=== PATIENT | female | born 1970 | race Caucasian/White ===

== ENCOUNTER 2018-01-14 17:56 | Inpatient (IN) ==
[2018-01-14] MEDS ORDERED: Sod Chloride 0.9% Inj 1,000 ML IV.SIG ONE (18:01)
--- NOTE | 2018-01-14 18:34 | ED ---
HPI General Chief Complaint: Overdose Stated Complaint: BA Time Seen by Provider: 01/14/18 18:01 Source: patient Mode of arrival: ambulatory Limitations: no limitations History of Present Illness HPI Narrative: 47-year-old female who presents to the ED for evaluation of overdose. Patient came here by EVAC. Per report from the ambulance and patient herself as well as from the ED nurse patient apparently allegedly made a note stating that she was going in her life and takes her pills. Patient herself did not confess to it but does state that she did drink a lot of vodka today. Apparently she might have taken some opiates as patient was given Narcan Did came back to it. Apparently EVAC was called by family member from out of town as they were concerned as patient had made some suicidal statements. Patient denies any symptoms at this time other than feeling tired. She is arousable but answer some questions. No abdominal pain. Nausea vomiting. Patient herself states that she wants to go home. She denies any homicidal ideation. No other medical problems. Related Data Allergies Allergy/AdvReac Type Severity Reaction Status Date / Time No Known Allergies Allergy Unknown Uncoded 03/11/12 20:23 Review of Systems ROS: all other systems reviewed are negative FOR[facility]LY [facility] Medical History Medical History EtOH dependence (Acute) HTN (hypertension) (Acute) Social History Social History Smoking Status: Current every day smoker Tobacco Type: Cigarettes How Often Do You Have a Drink Containing Alcohol: 4 or more times a week Recent Travel in [facility] within the Last 8 Weeks: No Recent Out of Country Travel within the Last 8 Weeks: No Immunization History Tetanus Immunization: Unable to Assess Hx Influenza Vaccine This Season: Unable to Assess Exam Narrative Exam Narrative: GENERAL: Well appearing. SKIN: Focused skin assessment warm/dry. HEAD: Atraumatic. Normocephalic. EYES: Pupils equal and round. No scleral icterus. No injection or drainage. ENT: No nasal bleeding or discharge. Mucous membranes pink and moist. Tongue is midline. No uvula deviation. NECK: Trachea midline. No JVD. CARDIOVASCULAR: Regular rate and rhythm. No murmur appreciated. RESPIRATORY: No accessory muscle use. Clear to auscultation. Breath sounds equal bilaterally. GASTROINTESTINAL: Abdomen soft, non-tender, nondistended. Hepatic and splenic margins not palpable. MUSCULOSKELETAL: No obvious deformities. No clubbing. No cyanosis. No edema. Full range of motion of the upper and lower extremities bilaterally. 2+ pulses bilaterally. NEUROLOGICAL: Awake and alert. No obvious cranial nerve deficits. Motor grossly within normal limits. Normal speech. PSYCHIATRIC: Intoxicated mood and affect; insight and judgment normal. Course Initial Documented Vital Signs Temperature 98.4 F 01/14/18 18:07 Pulse Rate 124 H 01/14/18 18:07 Respiratory Rate 19 01/14/18 18:07 Blood Pressure 140/79 01/14/18 18:07 Pulse Oximetry 99 01/14/18 18:07 Last Documented Vital Signs Temperature 98.3 F 01/14/18 20:09 Pulse Rate 116 H 01/14/18 20:09 Respiratory Rate 15 01/14/18 20:09 Blood Pressure 142/84 H 01/14/18 20:09 Pulse Oximetry 100 01/14/18 20:09 Medical Decision Making VIVIANE Attestation Attestation: I, Dr. Bejarano, have reviewed the advance practice practitioner's documentation and am in agreement, met with the patient face to face, made the diagnosis, and the medical decision making was done by me. *My assessment and Findings: Patient seen and evaluated with PA, please see PA notes for further details. She is here after an intentional overdose of Seroquel and possibly other medications including Geodon. It does not know what she actually took but she also has been drinking alcohol. She has been Huynh acted by me in the ER. At this point, it appears to be intentional overdose. She is tachycardic and apparently had a episode of narrow complex tachycardia while on the ambulance at a rate of 140 bpm. It self resolved. EKG did not show any significant interval changes. Her QRSs are less than 100 ms. At this point, patient will need to be observed over night and plan would be to admit her for further evaluation and treatment. Evaluation of electrolyte abnormalities and coingestions will also need to be done as well. Poison control has been contacted and is following case. MDM Narrative Medical decision making narrative: 47-year-old female that presents to the ED for evaluation of possible overdose with attempt to hurt herself. Patient was properly examined and was found to have signs and symptoms consistent with overdose. Currently she is arousable and she answer some questions but is hard to get a history from her. She would not fess up to what she took. Allegedly she took remerol and possible Seroquel. IV fluids were started. Labs and imaging order. Poison control was contacted and recommend observation for now. Watch for QRS changes. Labs and imaging showed elevated lactic acid. Positive for benzos, cocaine and cannabinoids. Alcohol elevated as well. Case discussed with my attending who agrees with admission. Patient was admitted to Dr. Jesus who agrees to admission to her service. Medical Screen Exam Complete: Yes Emergency Medical Condition: Yes Differential Diagnosis Differential Diagnosis: Overdose versus Huynh act versus psychiatric evaluation versus depression versus suicidal attempt versus polysubstance abuse Medical Records Medical records reviewed: Yes I reviewed the patient's medical records. Lab Data Result diagrams: 01/14/18 18:20 01/14/18 18:20 Lab Results 01/14/18 01/14/18 01/14/18 Range/Units 18:20 18:20 18:20 WBC 4.6 (4.0-11.0) th/mm3 RBC 3.51 L (4.00-5.30) mil/mm3 Hgb 13.1 (11.6-15.3) gm/dL Hct 37.7 (35.0-46.0) % MCV 107.3 H (80.0-100.0) fL MCH 37.2 H (27.0-34.0) pg MCHC 34.7 (32.0-36.0) % RDW 13.8 (11.6-17.2) % Plt Count 108 L (150-450) th/mm3 MPV 9.7 (7.0-11.0) fL Neut % (Auto) 57.7 (16.0-70.0) % Lymph % (Auto) 33.9 (9.0-44.0) % Marion % (Auto) 5.1 (0.0-8.0) % Eos % (Auto) 2.3 (0.0-4.0) % Baso % (Auto) 1.0 (0.0-2.0) % Neut # (Auto) 2.6 (1.8-7.7) th/mm3 Lymph # (Auto) 1.6 (1.0-4.8) th/mm3 Marion # (Auto) 0.2 (0.0-0.9) th/mm3 Eos # (Auto) 0.1 (0.0-0.4) th/mm3 Baso # (Auto) 0.0 (0.0-0.2) th/mm3 WBC Differential . Differential Comment Auto diff final PT 9.8 (9.8-11.6) sec INR 1.0 Ratio Sodium 140 (136-145) meq/L Potassium 3.2 L (3.5-5.1) meq/L Chloride 101 (98-107) meq/L Carbon Dioxide 25.6 (21.0-32.0) meq/L Anion Gap 13 (5-15) meq/L BUN 4 L (7-18) mg/dL Creatinine 0.51 (0.50-1.00) mg/dL Estimated GFR Greater than 89 (>89) mL/min Random Glucose 95 (74-106) mg/dL Lactic Acid (0.4-2.0) mmol/L Calcium 8.6 (8.5-10.1) mg/dL Total Bilirubin 0.3 (0.2-1.0) mg/dL AST 289 H (15-37) U/L ALT 197 H (10-53) U/L Alkaline Phosphatase 73 (45-117) U/L Troponin I Less than 0.02 L (0.02-0.05) ng/mL Total Protein 7.3 (6.4-8.2) g/dL Albumin 3.6 (3.4-5.0) g/dL Lipase 228 (73-393) U/L Urine Color (Yellw/Straw) Urine Clarity (Clear) Urine pH (5.0-8.5) Ur Specific [place] (1.002-1.035) Urine Protein (Neg-Trace) mg/dL Urine Glucose (UA) (Negative) mg/dL Urine Ketones (Negative) mg/dL Urine Occult Blood (Negative) Urine Nitrate (Negative) Urine Bilirubin (Negative) Urine Urobilinogen (Less than 2) mg/dL Ur Leukocyte Esterase (Negative) Urine RBC (0-3) /hpf Urine WBC (0-5) /hpf Ur Squamous Epith Cells (0-5) /hpf Urine Bacteria (None) /hpf Urine Mucus (Occasional) /lpf Micro UA Comment Ur Microscopic Review Urine Culture Comments Salicylates (2.8-20.0) mg/dL Urine Opiates Screen (Neg) Acetaminophen Less than 2.0 L (10.0-30.0) mcg/mL Ur Barbiturates Screen (Neg) Ur Amphetamines Screen (Neg) U Benzodiazepines Scrn (Neg) Urine Cocaine Screen (Neg) U Cannabinoids Screen (Neg) Serum Alcohol 249 H (0-5) mg/dL 01/14/18 01/14/18 01/14/18 Range/Units 18:20 18:40 18:40 WBC (4.0-11.0) th/mm3 RBC (4.00-5.30) mil/mm3 Hgb (11.6-15.3) gm/dL Hct (35.0-46.0) % MCV (80.0-100.0) fL MCH (27.0-34.0) pg MCHC (32.0-36.0) % RDW (11.6-17.2) % Plt Count (150-450) th/mm3 MPV (7.0-11.0) fL Neut % (Auto) (16.0-70.0) % Lymph % (Auto) (9.0-44.0) % Marion % (Auto) (0.0-8.0) % Eos % (Auto) (0.0-4.0) % Baso % (Auto) (0.0-2.0) % Neut # (Auto) (1.8-7.7) th/mm3 Lymph # (Auto) (1.0-4.8) th/mm3 Marion # (Auto) (0.0-0.9) th/mm3 Eos # (Auto) (0.0-0.4) th/mm3 Baso # (Auto) (0.0-0.2) th/mm3 WBC Differential Differential Comment PT (9.8-11.6) sec INR Ratio Sodium (136-145) meq/L Potassium (3.5-5.1) meq/L Chloride (98-107) meq/L Carbon Dioxide (21.0-32.0) meq/L Anion Gap (5-15) meq/L BUN (7-18) mg/dL Creatinine (0.50-1.00) mg/dL Estimated GFR (>89) mL/min Random Glucose (74-106) mg/dL Lactic Acid 4.4 H* (0.4-2.0) mmol/L Calcium (8.5-10.1) mg/dL Total Bilirubin (0.2-1.0) mg/dL AST (15-37) U/L ALT (10-53) U/L Alkaline Phosphatase (45-117) U/L Troponin I (0.02-0.05) ng/mL Total Protein (6.4-8.2) g/dL Albumin (3.4-5.0) g/dL Lipase (73-393) U/L Urine Color (Yellw/Straw) Urine Clarity (Clear) Urine pH (5.0-8.5) Ur Specific [place] (1.002-1.035) Urine Protein (Neg-Trace) mg/dL Urine Glucose (UA) (Negative) mg/dL Urine Ketones (Negative) mg/dL Urine Occult Blood (Negative) Urine Nitrate (Negative) Urine Bilirubin (Negative) Urine Urobilinogen (Less than 2) mg/dL Ur Leukocyte Esterase (Negative) Urine RBC (0-3) /hpf Urine WBC (0-5) /hpf Ur Squamous Epith Cells (0-5) /hpf Urine Bacteria (None) /hpf Urine Mucus (Occasional) /lpf Micro UA Comment Ur Microscopic Review Urine Culture Comments Salicylates 3.0 (2.8-20.0) mg/dL Urine Opiates Screen Neg (Neg) Acetaminophen (10.0-30.0) mcg/mL Ur Barbiturates Screen Neg (Neg) Ur Amphetamines Screen Neg (Neg) U Benzodiazepines Scrn Pos H (Neg) Urine Cocaine Screen Pos H (Neg) U Cannabinoids Screen Pos H (Neg) Serum Alcohol (0-5) mg/dL 01/14/18 Range/Units 18:40 WBC (4.0-11.0) th/mm3 RBC (4.00-5.30) mil/mm3 Hgb (11.6-15.3) gm/dL Hct (35.0-46.0) % MCV (80.0-100.0) fL MCH (27.0-34.0) pg MCHC (32.0-36.0) % RDW (11.6-17.2) % Plt Count (150-450) th/mm3 MPV (7.0-11.0) fL Neut % (Auto) (16.0-70.0) % Lymph % (Auto) (9.0-44.0) % Marion % (Auto) (0.0-8.0) % Eos % (Auto) (0.0-4.0) % Baso % (Auto) (0.0-2.0) % Neut # (Auto) (1.8-7.7) th/mm3 Lymph # (Auto) (1.0-4.8) th/mm3 Marion # (Auto) (0.0-0.9) th/mm3 Eos # (Auto) (0.0-0.4) th/mm3 Baso # (Auto) (0.0-0.2) th/mm3 WBC Differential Differential Comment PT (9.8-11.6) sec INR Ratio Sodium (136-145) meq/L Potassium (3.5-5.1) meq/L Chloride (98-107) meq/L Carbon Dioxide (21.0-32.0) meq/L Anion Gap (5-15) meq/L BUN (7-18) mg/dL Creatinine (0.50-1.00) mg/dL Estimated GFR (>89) mL/min Random Glucose (74-106) mg/dL Lactic Acid (0.4-2.0) mmol/L Calcium (8.5-10.1) mg/dL Total Bilirubin (0.2-1.0) mg/dL AST (15-37) U/L ALT (10-53) U/L Alkaline Phosphatase (45-117) U/L Troponin I (0.02-0.05) ng/mL Total Protein (6.4-8.2) g/dL Albumin (3.4-5.0) g/dL Lipase (73-393) U/L Urine Color Yellow (Yellw/Straw) Urine Clarity Clear (Clear) Urine pH 6.0 (5.0-8.5) Ur Specific [place] 1.011 (1.002-1.035) Urine Protein Negative (Neg-Trace) mg/dL Urine Glucose (UA) Negative (Negative) mg/dL Urine Ketones Trace H (Negative) mg/dL Urine Occult Blood Small H (Negative) Urine Nitrate Negative (Negative) Urine Bilirubin Negative (Negative) Urine Urobilinogen Less than 2 (Less than 2) mg/dL Ur Leukocyte Esterase Negative (Negative) Urine RBC 1 (0-3) /hpf Urine WBC Less than 1 (0-5) /hpf Ur Squamous Epith Cells <1 (0-5) /hpf Urine Bacteria Occasional H (None) /hpf Urine Mucus Few H (Occasional) /lpf Micro UA Comment Cath-culture ind Ur Microscopic Review Not Reportable Urine Culture Comments Cath-cult indicated Salicylates (2.8-20.0) mg/dL Urine Opiates Screen (Neg) Acetaminophen (10.0-30.0) mcg/mL Ur Barbiturates Screen (Neg) Ur Amphetamines Screen (Neg) U Benzodiazepines Scrn (Neg) Urine Cocaine Screen (Neg) U Cannabinoids Screen (Neg) Serum Alcohol (0-5) mg/dL Discharge Plan Discharge Disposition Patient Disposition: 30 Still Patient Discharge Details Diagnosis: Drug overdose, Suicide attempt by multiple drug overdose Physicians Team ED Provider: Bree Bejarano ED Midlevel Provider: Tano Barnard Primary Care Provider: UNKNOWN, Attending Provider: Delia Jesus Discharge Interventions Interventions: Vital Signs Last Done: 01/14/18 20:09 Status ED Status: Admitted Patient
[2018-01-14 18:58] LABS: Eos # (Auto) 0.1 th/mm3 (0.0-0.4); Eos % (Auto) 2.3 % (0.0-4.0); Hematocrit 37.7 % (35.0-46.0); Hemoglobin 13.1 gm/dL (11.6-15.3); Lymph # (Auto) 1.6 th/mm3 (1.0-4.8); Lymph % (Auto) 33.9 % (9.0-44.0); Mean Corpuscular HGB Conc 34.7 % (32.0-36.0); Mean Corpuscular Hemoglobin 37.2 pg (27.0-34.0); Mean Corpuscular Volume 107.3 fL (80.0-100.0); Mean Platelet Volume 9.7 fL (7.0-11.0); Mono # (Auto) 0.2 th/mm3 (0.0-0.9); Mono % (Auto) 5.1 % (0.0-8.0); Neut # (Auto) 2.6 th/mm3 (1.8-7.7); Neut % (Auto) 57.7 % (16.0-70.0); Platelet Count 108 th/mm3 (150-450); Red Blood Count 3.51 mil/mm3 (4.00-5.30); Red Cell Distribution Width 13.8 % (11.6-17.2); White Blood Count 4.6 th/mm3 (4.0-11.0)
[2018-01-14 19:10] LABS: Prothrombin Time 9.8 sec (9.8-11.6)
[2018-01-14 19:29] LABS: Albumin 3.6 g/dL (3.4-5.0); Anion Gap 13 meq/L (5-15); Blood Urea Nitrogen 4 mg/dL (7-18); Calcium 8.6 mg/dL (8.5-10.1); Carbon Dioxide 25.6 meq/L (21.0-32.0); Chloride 101 meq/L (98-107); Glomerular Filtration Rate Greater Than 89 mL/min (>89); Glucose,Random 95 mg/dL (74-106); Lipase 228 U/L (73-393); Potassium 3.2 meq/L (3.5-5.1); Sodium 140 meq/L (136-145)
[2018-01-14] MEDS ORDERED: Sod Chloride 0.9% Inj 1,000 ML IV.SIG SCH (19:30)
[2018-01-14 19:36] LABS: Alanine Aminotransferase 197 U/L (10-53); Alkaline Phosphatase 73 U/L (45-117); Aspartate Aminotransferase 289 U/L (15-37); Total Protein 7.3 g/dL (6.4-8.2)
[2018-01-14 19:48] LABS: Alcohol 249 mg/dL (0-5)
[2018-01-14] MEDS ORDERED: Mag Sulf 1 gm/100 ml Premix 100 ML IV.SIG ONE (20:33)
[2018-01-14] MEDS ORDERED: LORazepam 1 MG Tablet PO PRN (20:52)
[2018-01-14] MEDS ORDERED: Haloperidol Inj 5 MG/ML Ampul IV.PUSH PRN (20:52)
[2018-01-14 21:03] LABS: Bacteria,Urine Occasional /hpf; Bilirubin,Urine Negative (Negative); Clarity,Urine Clear (Clear); Color,Urine Yellow (Yellw/Straw); Glucose,Urine (UA) Negative (Negative); Leukocyte Esterase,Urine Negative (Negative); Mucus,Urine Few /lpf (Occasional); Nitrite,Urine Negative (Negative); Specific Gravity,Urine 1.011 (1.002-1.035); Squamous Epithelial Cell,Urine <1 /hpf (0-5)
[2018-01-14 21:04] LABS: Amphetamine Screen,Urine Neg (Neg); Barbiturate Screen,Urine Neg (Neg); Cannabinoid Screen,Urine Pos (Neg); Cocaine Screen,Urine Pos (Neg)
[2018-01-14 21:29] LABS: Opiate Screen,Urine Neg (Neg)
--- NOTE | 2018-01-14 22:36 | P.HPIM ---
History of Present Illness Primary Care Physician: UNKNOWN History of Present Illness: 47 y/o female with a history of polysubstance abuse was brought in by EVAC after an intentional overdose. Per report from the ER physician said she apparently made a note stating that she was going in her life and takes her pills. It is unknown what medications she took. Upon examination patient is lethargic and not answering any questions. She does arouse to voice but just mumbles sounds. ROS is limited due to mental status. Inpatient Certification: I certify that the inpatient services were ordered in accordance with Medicare regulations governing the order. This includes certification that hospital inpatient services are reasonable and necessary and in the case of services not specified as inpatient-only under 42 CFR 419.22(n), that they are appropriately provided as inpatient services in accordance to with the 2-midnight benchmark under 43 CFR 412.3(e) Estimated Total Length of Stay (Days): 2 Plans for Post Hospital Care: Not yet determined Review of Systems All other systems reviewed negative except as stated in HPI [facility] - History History Provided By: Patient, Building Services Engineer / EMT - Medical / Surgical Hx Neg / Unobtainable Surgical History: Unable to Obtain - Medical History Medical History: Medical History (Last Reviewed 01/14/18 @ 23:19 by ROMULO Barnes) EtOH dependence HTN (hypertension) - Surgical History Surgical History: Surgical History (Last Updated 01/14/18 @ 23:19 by ROMULO Barnes) Surgical history unknown - Family History Family History: Family History (Last Reviewed 01/14/18 @ 23:18 by ROMULO Barnes) Other Family history unknown - Tobacco History Tobacco Use In Past 30 Days: No Smoking Status: Current every day smoker Tobacco Type: Cigarettes - Alcohol History How Often Do You Have a Drink Containing Alcohol: 4 or more times a week - Travel History Recent Travel in the [place] Within the Last 8 Weeks: No Recent Travel Out of the Country Within the Last 8 Weeks: No - Immunization History Tetanus Immunization: Unable to Assess Hx Influenza Vaccine This Season: Unable to Assess Medications and Allergies Active Medications: Active Medications Flumazenil (Romazecon Inj) 0.2 mg IV.PUSH Q1M PRN PRN Reason: OVERSEDATION Haloperidol Lactate (Haldol Inj) 1 mg IV.PUSH Q15M PRN PRN Reason: for severe agitation Sodium Chloride (Ns Inj) 1,000 mls @ 0 mls/hr IV.SIG BOLUS IZABEL Sodium Chloride (Ns Inj) 1,000 mls @ 100 mls/hr IV.CONT .Q10H IZABEL Lorazepam (Ativan Inj) 1 mg IV.PUSH Q4H PRN PRN Reason: for CIWA 8-10 Lorazepam (Ativan Inj) 2 mg IV.PUSH Q15M PRN PRN Reason: for CIWA > 20 Lorazepam (Ativan Inj) 2 mg IV.PUSH Q1H PRN PRN Reason: for CIWA 15-20 Lorazepam (Ativan Inj) 2 mg IV.PUSH Q2H PRN PRN Reason: for CIWA 11-14 Lorazepam (Ativan) 1 mg PO Q4H PRN PRN Reason: for CIWA 8-10 Lorazepam (Ativan) 2 mg PO Q2H PRN PRN Reason: for CIWA 11-14 Ondansetron HCl (Zofran Inj) 4 mg IV.PUSH Q6H PRN PRN Reason: NAUSEA OR VOMITING Allergies Allergy/AdvReac Type Severity Reaction Status Date / Time No Known Allergies Allergy Unknown Uncoded 03/11/12 20:23 Exam Vital signs: Vital Signs 01/14/18 18:07 01/14/18 18:15 01/14/18 20:09 Temperature 98.4 F 98.3 F Pulse Rate 124 H 119 H 116 H Respiratory Rate 19 15 Blood Pressure 140/79 142/84 H Pulse Oximetry 99 96 100 Intake & Output 01/14/18 01/14/18 01/15/18 06:59 18:59 06:59 Intake Total 1100 / 1100 Balance 1100 / 1100 Weight 74.843 kg Intake: IV 1100 / 1100 Magnesium Sulfate 1 gm/D5W 100 100 / 100 ml Premix 100 ML @ 100 mls/hr IV.SIG ONCE ONE Rx#:[id number] NS Inj 1,000 ML @ Wide Open IV. 1000 / 1000 SIG BOLUS ONE Rx#:[id number] Narrative: GENERAL: This is a well-nourished, well-developed patient, in no apparent distress. CARDIOVASCULAR: Regular rate and rhythm without murmurs, gallops, or rubs. RESPIRATORY: Clear to auscultation. Breath sounds equal bilaterally. No wheezes , rales, or rhonchi. GASTROINTESTINAL: Abdomen soft, non-tender, nondistended. Normal active bowel sounds MUSCULOSKELETAL: Extremities without clubbing, cyanosis, or edema. NEURO: Lethargic, drunk and not oriented to person, place, time, or situation. Does not follow commands Results - Labs CBC & Chem 7: 01/14/18 18:20 01/14/18 18:20 Labs: Short CBC 01/14/18 Range/Units 18:20 WBC 4.6 (4.0-11.0) th/mm3 Hgb 13.1 (11.6-15.3) gm/dL Hct 37.7 (35.0-46.0) % Plt Count 108 L (150-450) th/mm3 BMP 01/14/18 18:20 Sodium 140 Potassium 3.2 L Chloride 101 Carbon Dioxide 25.6 BUN 4 L Creatinine 0.51 Calcium 8.6 Cardiac Enzymes 01/14/18 Range/Units 18:20 Troponin I Less than 0.02 L (0.02-0.05) ng/mL Liver Function 01/14/18 Range/Units 18:20 Total Bilirubin 0.3 (0.2-1.0) mg/dL AST 289 H (15-37) U/L ALT 197 H (10-53) U/L Alkaline Phosphatase 73 (45-117) U/L Albumin 3.6 (3.4-5.0) g/dL Urine 01/14/18 Range/Units 18:40 Urine Color Yellow (Yellw/Straw) Urine Clarity Clear (Clear) Urine pH 6.0 (5.0-8.5) Ur Specific [place] 1.011 (1.002-1.035) Urine Protein Negative (Neg-Trace) mg/dL Urine Glucose (UA) Negative (Negative) mg/dL Caprini VTE Risk Assessment Caprini VTE Risk Assessment: No/Low Risk (score <= 1) Caprini Risk Assessment Model: Point Value = 1 Point Value = 2 Point Value = 3 Point Value = 5 Age 41-60 Minor surgery BMI > 25 kg/m2 Swollen legs Varicose veins or History of unexplained or recurrent spontaneous Oral contraceptives or hormone replacement Sepsis (< 1 month) Serious lung disease, including pneumonia (< 1 month) Abnormal pulmonary function Acute myocardial infarction Congestive heart failure (< 1 month) History of inflammatory bowel disease Medical patient at bed rest Age 61-74 Arthroscopic surgery Major open surgery (> 45 min) Laparoscopic surgery (> 45 min) Malignancy Confined to bed (> 72 hours) Immobilizing plaster cast Central venous access Age >= 75 History of VTE Family history of VTE Factor V Leiden Prothrombin [id number] Lupus anticoagulant Anticardiolipin antibodies Elevated serum homocysteine Heparin-induced thrombocytopenia Other congenital or acquired thrombophilia Stroke (< 1 month) Elective arthroplasty Hip, pelvis, or leg fracture Acute spinal cord injury (< 1 month) Prophylaxis Regimen: Total Risk Factor Score Risk Level Prophylaxis Regimen 0-1 Low Early ambulation 2 Moderate Order ONE of the following: *Sequential Compression Device (SCD) *Heparin 5000 units SQ BID 3-4 Higher Order ONE of the following medications: *Heparin 5000 units SQ TID *Enoxaparin/Lovenox 40 mg SQ daily (WT < 150 kg, CrCl > 30 mL/min) *Enoxaparin/Lovenox 30 mg SQ daily (WT < 150 kg, CrCl > 10-29 mL/min) *Enoxaparin/Lovenox 30 mg SQ BID (WT < 150 kg, CrCl > 30 mL/min) AND/OR *Sequential Compression Device (SCD) 5 or more Highest Order ONE of the following medications: *Heparin 5000 units SQ TID (Preferred with Epidurals) *Enoxaparin/Lovenox 40 mg SQ daily (WT < 150 kg, CrCl > 30 mL/min) *Enoxaparin/Lovenox 30 mg SQ daily (WT < 150 kg, CrCl > 10-29 mL/min) *Enoxaparin/Lovenox 30 mg SQ BID (WT < 150 kg, CrCl > 30 mL/min) AND *Sequential Compression Device (SCD) Assessment and Plan - Plan Intentional overdose, unknown medications -Poison control notified and following -Patient is ayanna vickers sitter ordered -Restraints -Serial troponin and EKGs ordered -Monitor telemetry -Consult psychiatry Etoh abuse, alcohol level on admission 249 -Due to mental status unable to summer counselor -[facility] protocol DVT prophylaxis: SCDs Discussed Condition With: Patient and RN
[2018-01-14] MEDS: Sod Chloride 0.9% Inj 1,000 ML IV.CONT SCH (23:23)
[2018-01-15] MEDS: Potassium Chlor 10 mEq Premix 10 MEQ/100 ML PIGGYBACK IV.SIG SCH ×3 (00:49→03:11)
[2018-01-15 06:02] LABS: Baso % (Auto) 0.4 % (0.0-2.0); Eos # (Auto) 0.2 th/mm3 (0.0-0.4); Eos % (Auto) 2.9 % (0.0-4.0); Hematocrit 35.4 % (35.0-46.0); Hemoglobin 12.3 gm/dL (11.6-15.3); Lymph # (Auto) 1.6 th/mm3 (1.0-4.8); Lymph % (Auto) 31.3 % (9.0-44.0); Mean Corpuscular HGB Conc 34.9 % (32.0-36.0); Mean Corpuscular Hemoglobin 37.5 pg (27.0-34.0); Mean Corpuscular Volume 107.6 fL (80.0-100.0); Mean Platelet Volume 9.2 fL (7.0-11.0); Mono # (Auto) 0.3 th/mm3 (0.0-0.9); Mono % (Auto) 5.1 % (0.0-8.0); Neut # (Auto) 3.1 th/mm3 (1.8-7.7); Neut % (Auto) 60.3 % (16.0-70.0); Platelet Count 109 th/mm3 (150-450); Red Blood Count 3.29 mil/mm3 (4.00-5.30); Red Cell Distribution Width 13.6 % (11.6-17.2); White Blood Count 5.2 th/mm3 (4.0-11.0)
[2018-01-15 06:17] LABS: Anion Gap 9 meq/L (5-15); Blood Urea Nitrogen 2 mg/dL (7-18); Calcium 8.4 mg/dL (8.5-10.1); Carbon Dioxide 27.2 meq/L (21.0-32.0); Chloride 107 meq/L (98-107); Glomerular Filtration Rate Greater Than 89 mL/min (>89); Glucose,Random 73 mg/dL (74-106); Magnesium 2.2 mg/dL (1.5-2.5); Potassium 3.7 meq/L (3.5-5.1); Sodium 143 meq/L (136-145)
[2018-01-15 06:21] LABS: Creatine Kinase 71 U/L (26-192)
[2018-01-15] MEDS: Sod Chloride 0.9% Inj 1,000 ML IV.CONT SCH (09:30)
--- NOTE | 2018-01-15 11:55 | P.PN ---
Subjective Interval history: hungry telemetry in sinus rhythm seen with sitter at bedside expressed frustration thought of not "wanting to live" took extra Klonopin pills no pain, no nausea or vomiting per patient on diuretics for HTN- does not know the name Physical Exam Vital signs: Vital Signs 01/14/18 18:07 01/14/18 18:15 01/14/18 20:09 Temperature 98.4 F 98.3 F Pulse Rate 124 H 119 H 116 H Respiratory Rate 19 15 Blood Pressure 140/79 142/84 H Pulse Oximetry 99 96 100 01/15/18 00:15 01/15/18 01:00 01/15/18 02:00 Temperature 97.4 F L Pulse Rate 88 89 90 Respiratory Rate 16 Blood Pressure 145/95 H Pulse Oximetry 98 01/15/18 03:00 01/15/18 04:00 01/15/18 05:00 Temperature 97.7 F Pulse Rate 86 96 H 90 Respiratory Rate 16 Blood Pressure 143/90 H Pulse Oximetry 97 01/15/18 06:00 01/15/18 07:00 01/15/18 08:00 Temperature 98.3 F Pulse Rate 104 H 100 H 94 H Respiratory Rate 20 Blood Pressure 152/98 H Pulse Oximetry 94 L Intake & Output 01/14/18 01/15/18 01/15/18 18:59 06:59 18:59 Intake Total 1400 / 1400 1000 / 1000 Output Total 2600 / 2600 Balance -1200 / -1200 1000 / 1000 Weight 74.843 kg 57.7 kg Intake: IV 1400 / 1400 1000 / 1000 NS Inj 1,000 ML @ 100 mls/hr IV 1000 / 1000 .CONT .Q10H IZABEL Rx#:[id number] Magnesium Sulfate 1 gm/D5W 100 100 / 100 ml Premix 100 ML @ 100 mls/hr IV.SIG ONCE ONE Rx#:[id number] KCl 10 mEq Premix Inj 10 meq In 300 / 300 100 ml @ 100 mls/hr IV.SIG Q1H IZABEL Rx#:[id number] NS Inj 1,000 ML @ Wide Open IV. 1000 / 1000 SIG BOLUS ONE Rx#:[id number] Output: Urine 2600 / 2600 Other: Date of Last Bowel Movement 01/13/18 # Bowel Movements 0 Narrative: affect blunt, frustrated awske and alert, no distess anciteric no nuchal rigidity'lungs- clear regularrhythm abdomen soft extrmeities no edema gait stedy Results - Labs CBC & Chem 7: 01/15/18 05:29 01/15/18 05:29 Laboratory Results - last 24 hr 01/14/18 01/14/18 01/14/18 18:20 18:20 18:20 WBC 4.6 RBC 3.51 L Hgb 13.1 Hct 37.7 MCV 107.3 H MCH 37.2 H MCHC 34.7 RDW 13.8 Plt Count 108 L MPV 9.7 Neut % (Auto) 57.7 Lymph % (Auto) 33.9 Moffat % (Auto) 5.1 Eos % (Auto) 2.3 Baso % (Auto) 1.0 Neut # (Auto) 2.6 Lymph # (Auto) 1.6 Moffat # (Auto) 0.2 Eos # (Auto) 0.1 Baso # (Auto) 0.0 WBC Differential . Differential Comment Auto diff final PT 9.8 INR 1.0 Sodium 140 Potassium 3.2 L Chloride 101 Carbon Dioxide 25.6 Anion Gap 13 BUN 4 L Creatinine 0.51 Estimated GFR Greater than 89 Random Glucose 95 Lactic Acid Calcium 8.6 Magnesium Total Bilirubin 0.3 AST 289 H ALT 197 H Alkaline Phosphatase 73 Total Creatine Kinase Troponin I Less than 0.02 L Total Protein 7.3 Albumin 3.6 Lipase 228 Urine Color Urine Clarity Urine pH Ur Specific [place] Urine Protein Urine Glucose (UA) Urine Ketones Urine Occult Blood Urine Nitrate Urine Bilirubin Urine Urobilinogen Ur Leukocyte Esterase Urine RBC Urine WBC Ur Squamous Epith Cells Urine Bacteria Urine Mucus Micro UA Comment Ur Microscopic Review Urine Culture Comments Salicylates Urine Opiates Screen Acetaminophen Less than 2.0 L Ur Barbiturates Screen Ur Amphetamines Screen U Benzodiazepines Scrn Urine Cocaine Screen U Cannabinoids Screen Serum Alcohol 249 H 01/14/18 01/14/18 01/14/18 18:20 18:40 18:40 WBC RBC Hgb Hct MCV MCH MCHC RDW Plt Count MPV Neut % (Auto) Lymph % (Auto) [place] % (Auto) Eos % (Auto) Baso % (Auto) Neut # (Auto) Lymph # (Auto) Moffat # (Auto) Eos # (Auto) Baso # (Auto) WBC Differential Differential Comment PT INR Sodium Potassium Chloride Carbon Dioxide Anion Gap BUN Creatinine Estimated GFR Random Glucose Lactic Acid 4.4 H* Calcium Magnesium Total Bilirubin AST ALT Alkaline Phosphatase Total Creatine Kinase Troponin I Total Protein Albumin Lipase Urine Color Urine Clarity Urine pH Ur Specific [place] Urine Protein Urine Glucose (UA) Urine Ketones Urine Occult Blood Urine Nitrate Urine Bilirubin Urine Urobilinogen Ur Leukocyte Esterase Urine RBC Urine WBC Ur Squamous Epith Cells Urine Bacteria Urine Mucus Micro UA Comment Ur Microscopic Review Urine Culture Comments Salicylates 3.0 Urine Opiates Screen Neg Acetaminophen Ur Barbiturates Screen Neg Ur Amphetamines Screen Neg U Benzodiazepines Scrn Pos H Urine Cocaine Screen Pos H U Cannabinoids Screen Pos H Serum Alcohol 01/14/18 01/15/18 01/15/18 18:40 05:29 05:29 WBC 5.2 RBC 3.29 L Hgb 12.3 Hct 35.4 MCV 107.6 H MCH 37.5 H MCHC 34.9 RDW 13.6 Plt Count 109 L MPV 9.2 Neut % (Auto) 60.3 Lymph % (Auto) 31.3 Moffat % (Auto) 5.1 Eos % (Auto) 2.9 Baso % (Auto) 0.4 Neut # (Auto) 3.1 Lymph # (Auto) 1.6 Moffat # (Auto) 0.3 Eos # (Auto) 0.2 Baso # (Auto) 0.0 WBC Differential . Differential Comment Auto diff final PT INR Sodium 143 Potassium 3.7 Chloride 107 Carbon Dioxide 27.2 Anion Gap 9 BUN 2 L Creatinine 0.37 L Estimated GFR Greater than 89 Random Glucose 73 L Lactic Acid Calcium 8.4 L Magnesium 2.2 Total Bilirubin AST ALT Alkaline Phosphatase Total Creatine Kinase 71 Troponin I Less than 0.02 L Total Protein Albumin Lipase Urine Color Yellow Urine Clarity Clear Urine pH 6.0 Ur Specific [place] 1.011 Urine Protein Negative Urine Glucose (UA) Negative Urine Ketones Trace H Urine Occult Blood Small H Urine Nitrate Negative Urine Bilirubin Negative Urine Urobilinogen Less than 2 Ur Leukocyte Esterase Negative Urine RBC 1 Urine WBC Less than 1 Ur Squamous Epith Cells <1 Urine Bacteria Occasional H Urine Mucus Few H Micro UA Comment Cath-culture ind Ur Microscopic Review Not Reportable Urine Culture Comments Cath-cult indicated Salicylates Urine Opiates Screen Acetaminophen Ur Barbiturates Screen Ur Amphetamines Screen U Benzodiazepines Scrn Urine Cocaine Screen U Cannabinoids Screen Serum Alcohol Assessment and Plan - Plan 47 years Intentional overdose- took "Klonopin" pills History of Anxiety disorder -Poison control notified and following -Patient is ayanna melina vickers ordered - patient states she is on Valium at home -now awaler and alert- cooperative - Psychiatry consulted History of hypertension- does not recall meds- states takes it once a day "water pill"- - start Dyazide po daily, Toprol 50 mg XL daily -clondiine prn HYpokalemia- improved - ff BMP - Etoh abuse, alcohol level on admission 249 -Due to mental status unable to residential treatment counselor -[facility] protocol start diet DVT prophylaxis: SCDs Up and ambulate Discussed Condition With: patient OP ff up with PCP- Dr Martins one DC
--- NOTE | 2018-01-15 13:40 | P.CONPSY ---
Provisional Diagnosis Admission Date: January 14, 2018 20:55 Kne[place] I.: Major depressive disorder, recurrent, severe, without psychosis vs substance- induced mood disorder, history of anxiety, polysubstance dependence including cannabis, alcohol, cocaine, benzodiazepines Kneeland II.: Clinically significant cluster B traits identified, R/O borderline personality disorder Kneeland III.: Hypertension History of Present Illness Service: Medicine Primary Care Provider: UNKNOWN History of Present Illness: The patient is a 47 year-old woman, domiciled in [place] with her 14 years old daughter, she is , unemployed, with a psychiatric history of anxiety, major depressive disorder, polysubstance dependence including alcohol, cocaine, cannabis, benzodiazepines, no previous psychiatric hospitalizations, no previous suicidal attempts, she is on Valium 5 mg 3 times daily, prescribed by PCP, medical history hypertension, who was brought in by [facility] after an intentional overdose. Per report from the ER physician said she apparently made a note stating that she was going in her life and takes her pills. It is unknown what medications she took. Chart was reviewed. Labs reviewed. Collateral information from her mother Haley Cunningham, was obtained. Her mother explains that the patient has being quite depressed in the last 2 years, she has been experiencing frequent mood swings, same time she has been abusing alcohol and other drugs. She states that she has been quite stressed because her daughter is threatening to go to live with her father, which she has not been coping very well after her . She has been talking about committing suicide quite often in the last months. This time, the patient actually wrote a letter to her mother stated that her life was older. Her mother states that she ran to the patient's house and she found the patient laying in the couch is still alive and called 911. On my psychiatric evaluation I find a patient that is quite uncooperative, guarded, selectively mute. The patient seems to be very distressed and upset. When I ask her how does she feel, she said that she feels terrible and she prefers not to talk to me. With redirection the patient was able to tell me that she does not want to live anymore and her family is making her life miserable. She reports that she has been using a lot of drugs every day and drinking about 10 cans of beers daily. She refused to talk about her recent suicidal attempt. She denies any pain, denies withdrawal symptoms at the moment. She did not contract for safety. PPHx: Anxiety, depression, panic disorder, no previous psychiatric admissions, no previous suicide attempts, the patient is in value 5 mg 3 times daily prescribed by PCP PMHx: Hypertension Family Hx: Brother is bipolar Substance Hx: Patient reports the use of alcohol daily, 8-10 beers, cocaine, cannabis Social Hx: The patient was born and raised in [place], she losing [place] with her 14 years old daughter, she is , unemployed, her highest level of education is high school Review of Systems All other systems reviewed negative except as stated in HPI Psychiatric: Reports depression, Reports thoughts of hurting/killing yourself PMFSH - History History Provided By: Patient, 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 - Medical History Medical History: Medical History (Last Reviewed 01/14/18 @ 23:19 by ROMULO Barnes) EtOH dependence HTN (hypertension) - Surgical History Surgical History: Surgical History (Last Updated 01/14/18 @ 23:19 by ROMULO Barnes) Surgical history unknown - Family History Family History: Family History (Last Reviewed 01/14/18 @ 23:18 by ROMULO Barnes) Other Family history unknown - Tobacco History Tobacco Use In Past 30 Days: No Smoking Status: Current every day smoker Tobacco Type: Cigarettes - Alcohol History How Often Do You Have a Drink Containing Alcohol: 4 or more times a week - Travel History Recent Travel in the [facility] Within the Last 8 Weeks: No Recent Travel Out of the Country Within the Last 8 Weeks: No - Immunization History Tetanus Immunization: Unable to Assess Hx Influenza Vaccine This Season: Unable to Assess Medications and Allergies Active Medications: Active Medications Flumazenil (Romazecon Inj) 0.2 mg IV.PUSH Q1M PRN PRN Reason: OVERSEDATION Haloperidol Lactate (Haldol Inj) 1 mg IV.PUSH Q15M PRN PRN Reason: for severe agitation Sodium Chloride (Ns Inj) 1,000 mls @ 0 mls/hr IV.SIG BOLUS IZABEL Lorazepam (Ativan Inj) 1 mg IV.PUSH Q4H PRN PRN Reason: for CIWA 8-10 Lorazepam (Ativan Inj) 2 mg IV.PUSH Q15M PRN PRN Reason: for CIWA > 20 Lorazepam (Ativan Inj) 2 mg IV.PUSH Q1H PRN PRN Reason: for CIWA 15-20 Lorazepam (Ativan Inj) 2 mg IV.PUSH Q2H PRN PRN Reason: for CIWA 11-14 Lorazepam (Ativan) 1 mg PO Q4H PRN PRN Reason: for CIWA 8-10 Lorazepam (Ativan) 2 mg PO Q2H PRN PRN Reason: for CIWA 11-14 Ondansetron HCl (Zofran Inj) 4 mg IV.PUSH Q6H PRN PRN Reason: NAUSEA OR VOMITING Triamterene/HCTZ (Dyazide 37.5/25 Mg) 1 cap PO DAILY IZABEL Allergies Allergy/AdvReac Type Severity Reaction Status Date / Time No Known Allergies Allergy Unknown Uncoded 03/11/12 20:23 Exam Vital signs: Vital Signs 01/14/18 18:07 01/14/18 18:15 01/14/18 20:09 Temperature 98.4 F 98.3 F Pulse Rate 124 H 119 H 116 H Respiratory Rate 19 15 Blood Pressure 140/79 142/84 H Pulse Oximetry 99 96 100 01/15/18 00:15 01/15/18 01:00 01/15/18 02:00 Temperature 97.4 F L Pulse Rate 88 89 90 Respiratory Rate 16 Blood Pressure 145/95 H Pulse Oximetry 98 01/15/18 03:00 01/15/18 04:00 01/15/18 05:00 Temperature 97.7 F Pulse Rate 86 96 H 90 Respiratory Rate 16 Blood Pressure 143/90 H Pulse Oximetry 97 01/15/18 06:00 01/15/18 07:00 01/15/18 08:00 Temperature 98.3 F Pulse Rate 104 H 100 H 94 H Respiratory Rate 20 Blood Pressure 152/98 H Pulse Oximetry 94 L Intake & Output 01/14/18 01/15/18 01/15/18 18:59 06:59 18:59 Intake Total 1400 / 1400 1000 / 1000 Output Total 2600 / 2600 Balance -1200 / -1200 1000 / 1000 Weight 74.843 kg 57.7 kg Intake: IV 1400 / 1400 1000 / 1000 NS Inj 1,000 ML @ 100 mls/hr IV 1000 / 1000 .CONT .Q10H IZABEL Rx#:[id number] Magnesium Sulfate 1 gm/D5W 100 100 / 100 ml Premix 100 ML @ 100 mls/hr IV.SIG ONCE ONE Rx#:[id number] KCl 10 mEq Premix Inj 10 meq In 300 / 300 100 ml @ 100 mls/hr IV.SIG Q1H IZABEL Rx#:[id number] NS Inj 1,000 ML @ Wide Open IV. 1000 / 1000 SIG BOLUS ONE Rx#:[id number] Output: Urine 2600 / 2600 Other: Date of Last Bowel Movement 01/13/18 # Bowel Movements 0 Mental Status Examination Appearance: Appropriate Consciousness: Alert Orientation: x4 Motor Activity: Normal gait Speech: Hesitant, Slow Language: Adequate Fund of Knowledge: Adequate Attention and Concentration: Adequate Memory: Unremarkable Mood: Angry, Oppositional Affect: Irritable Thought Process & Associations: Intact Thought Content: Appropriate Hallucination Type: None Delusion Type: None Suicidal Ideation: Yes Suicidal Plan: No Suicidal Intention: Yes Homicidal Ideation: No Homicidal Plan: No Homicidal Intention: No Insight: Poor Judgment: Poor Assessment and Plan - Assessment (1) Depression Code(s): F32.9 - Major depressive disorder, single episode, unspecified Status : Acute - Plan Plan: Estimated LOS: [] days On psychiatric evaluation today I find a patient that is very upset, emotionally dysregulated, oppositional, poorly cooperative with the evaluation, with unable to contract for safety in the medical floor. As per [place]yn[place] act and as per mother collateral information, the patient has tried to commit suicide by overdosing, she has left a suicidal note in the context of depression related with recent process of and also with her daughter moving with her father. The patient also has being abusing several psychoactive drug including alcohol, cocaine, cannabis and benzodiazepines. There is a patient with a psychiatric history of depression, anxiety, but no psychiatric hospitalizations, and no suicidal attempts. At this moment the patient has an elevated risk of danger to self, she needs psychiatric admission for stabilization and safety. I have not recommending any psychotropic at this moment. Obviously, I will start [facility] protocol for potential benzodiazepine and alcohol withdrawal. Patient will be transferred to psychiatry was medically appropriate. Justification for Continued Inpatient Stay: Transferred the patient to psychiatry once medically appropriate. (1) Depression Qualifiers: Depression Type: major depressive disorder Major depression recurrence: recurrent Major depression episode severity: severe Psychotic features: without psychotic features
[2018-01-15 13:57] LABS: Creatine Kinase 71 U/L (26-192)
--- NOTE | 2018-01-15 14:04 | ECG ---
Date Performed: 01/14/2018 Time Performed: 20:22:41 PTAGE: 47 years EKG: SINUS TACHYCARDIA WITH OCCASIONAL VENTRICULAR PREMATURE COMPLEXES ABNORMAL RHYTHM ECG Since the PREVIOUS TRACING , no significant change noted PREVIOUS TRACING DOCTOR: Denys Yen Interpretating Date/Time 01/15/2018 14:02:07
--- NOTE | 2018-01-15 14:10 | ECG ---
Date Performed: 01/14/2018 Time Performed: 17:59:05 PTAGE: 47 years EKG: SINUS TACHYCARDIA POSSIBLE LEFT ATRIAL ENLARGEMENT ABNORMAL RHYTHM ECG Compared to PREVIOUS TRACING rate has slowed but fast rhythm persists PREVIOUS TRACIN03/11/12 DOCTOR: Denys Yen Interpretating Date/Time 01/15/2018 14:10:13
--- NOTE | 2018-01-15 14:10 | ECG ---
Date Performed: 01/15/2018 Time Performed: 02:07:32 PTAGE: 47 years EKG: Sinus rhythm Normalization of ekg compared to prior Normal ECG PREVIOUS TRACING : 01/14/2018 17.59 DOCTOR: Denys Yen Interpretating Date/Time 01/15/2018 14:10:37
[2018-01-16 00:51] VITALS: RESP 18
[2018-01-16 08:48] LABS: Calcium 9.9 mg/dL (8.5-10.1); Carbon Dioxide 28.4 meq/L (21.0-32.0); Potassium 3.7 meq/L (3.5-5.1)
--- NOTE | 2018-01-16 11:58 | P.PN ---
Subjective Interval history: Follow-up drug overdose and depression. Patient has no complaints she is alert and oriented 4. She regrets her actions. Denies depression, suicidal ideations and contracts for safety. Physical Exam Vital signs: Vital Signs 01/15/18 12:00 01/15/18 17:10 01/15/18 17:35 Temperature 97.8 F 97.9 F Pulse Rate 96 H 94 H Respiratory Rate 20 18 Blood Pressure 152/98 H 181/114 H 169/106 H Pulse Oximetry 95 97 01/15/18 19:35 01/15/18 21:16 01/16/18 00:51 Temperature 97.6 F 97.9 F Pulse Rate 85 77 76 Respiratory Rate 17 18 Blood Pressure 158/100 H 164/80 H 147/91 H Pulse Oximetry 97 97 96 Intake & Output 01/15/18 01/16/18 01/16/18 18:59 06:59 18:59 Intake Total 2760 / 2760 240 / 240 Balance 2760 / 2760 240 / 240 Weight 57 kg Intake: IV 1400 / 1400 NS Inj 1,000 ML @ 100 mls/hr IV 1400 / 1400 .CONT .Q10H IZABEL Rx#:[id number] Oral 1360 / 1360 240 / 240 Other: # Voids 5 2 Date of Last Bowel Movement 01/13/18 01/13/18 Narrative: affect blunt, frustrated awake and alert, no distress anicteric no nuchal rigidity lungs- clear regular rhythm abdomen soft extremities no edema gait steady Results - Labs CBC & Chem 7: 01/15/18 05:29 01/16/18 07:38 Laboratory Results - last 24 hr 01/15/18 01/15/18 01/16/18 12:30 17:58 07:38 Sodium 137 Potassium 3.7 Chloride 99 D Carbon Dioxide 28.4 Anion Gap 10 BUN 5 L Creatinine 0.79 Estimated GFR 78 L POC Glucose 133 H Random Glucose 108 H Calcium 9.9 D Total Creatine Kinase 71 Troponin I Less than 0.02 L Microbiology 01/14/18 18:40 Catheterized Urine Urine Culture - Final 50-100,000 cfu/mL mixed gram positive leander (probable contaminants) - Procedures none Assessment and Plan - Plan 47 years Intentional overdose- took "Klonopin" pills History of Anxiety disorder -Poison control notified and following -Patient is melina rockwell ordered - patient states she is on Valium at home - now awake and alert- cooperative. She is hemodynamically stable. Neurologically intact. - Psychiatry recommended psych admission. She is medically cleared and stable for psychiatry admission History of hypertension-stable continue home medications. Hypokalemia- improved - ff BMP PSA/Etoh abuse, alcohol level on admission 249 -counselled -[facility] protocol Transaminitis likely secondary to alcohol. Monitor Macrocytosis and thrombocytopenia likely related to alcohol. Obtain B12 and folate. Monitor DVT prophylaxis: SCDs Up and ambulate Discharge Planning: Discharge patient to psychiatry unit Condition on discharge: Improved Regular Diet as tolerated [place] activity no driving Rx written: None Follow-up with primary care physician
[2018-01-16 13:07] VITALS: BP 163/97; PULSE 70; TEMP 98; O2SAT 98
[2018-01-16 13:33] LABS: Folate 10.9 ng/mL (3.1-17.5)
--- NOTE | 2018-01-16 15:15 | ECG ---
Date Performed: 01/15/2018 Time Performed: 08:42:42 PTAGE: 47 years EKG: Sinus rhythm Septal T wave changes are nonspecific Borderline ECG NO PREVIOUS TRACING DOCTOR: Jaime Fung Interpretating Date/Time 01/16/2018 15:14:05
== END 2018-01-16 14:52 ==
LOC: NEPC 17:56 → NEDA 20:55 → HCIS 01-15 → N07 01-15 21:05
PROVIDERS: ADMIT Internal Medicine; ATTEND Internal Medicine

== ENCOUNTER 2018-01-16 15:11 | Inpatient (IN) ==
[2018-01-16] MEDS ORDERED: LORazepam 1 MG Tablet PO PRN (15:24)
[2018-01-16] MEDS ORDERED: Bisacodyl 10 MG Supp RECTAL PRN (15:24)
[2018-01-16] MEDS ORDERED: Aluminum/Magnesium/Simethacone Susp 30 ML UDC PO PRN (15:24)
[2018-01-16] MEDS ORDERED: Haloperidol Inj 5 MG/ML Ampul IV.PUSH PRN (15:24)
[2018-01-16] MEDS: Senna/Docusate Sodium 8.6/50 MG Tablet PO SCH (20:49)
[2018-01-17] MEDS: Senna/Docusate Sodium 8.6/50 MG Tablet PO SCH ×2 (09:27→23:43)
[2018-01-17 10:06] LABS: Calcium 9.8 mg/dL (8.5-10.1); Carbon Dioxide 29.4 meq/L (21.0-32.0); Chol/HDL Ratio 3.72 Ratio; Potassium 3.9 meq/L (3.5-5.1)
[2018-01-17] MEDS ORDERED: Haloperidol Inj 5 MG/ML Ampul IM STA (10:17)
--- NOTE | 2018-01-17 10:18 | P.HPPSY ---
Provisional Diagnosis Admission Date: January 16, 2018 15:11 [place] I.: 1. Unspecified psychosis Rule out withdrawal delirium Rule out delirium due to GMC 2. Polysubstance abuse [place] II.: Deferred Competence Certification of Person's Competence To Provide Express and Informed Consent I have personally examined Foreign Cunningham, a person being served at [facility] on, January 17, 2018 1018. Express and informed consent means consent voluntarily given in writing, by a competent person, after sufficient explanation and disclosure of the subject matter involved to enable the person to make a knowing and willful decision without any element of force, fraud, deceit, duress, or other form of constraint or coercion. This person is 18 years of age or older, is not now known to be incompetent to consent to treatment with a guardian advocate, and does not have a health care surrogate or proxy currently making medical treatment decisions. I have found this person to be one of the following: [] Competent to provide express and informed consent, as defined above, for voluntary admission to this facility and is competent to provide express and informed consent for treatment. He/she has the consistent capacity to make well reasoned, willful, and knowing decisions concerning his or her medical or mental health treatment. The person fully and consistently understands the purpose of the admission for examination/placement and is fully capable of personally exercising all rights assured [place] [X] Incompetent to provide express and informed consent to voluntary admission, and this is incompetent to provide express and informed consent to treatment. The person must be transferred to involuntary status and a petition for a guardian advocate filed with the Circuit Court. [] Refusing to provide express and informed consent to voluntary admission but is competent to provide express and informed consent for treatment. The person must be discharged or transferred to involuntary status. Form shall be completed within 24 hours of a person's arrival at the receiving facility and filed in the clinical record of each person: 1. Admitted on a voluntary basis 2. Permitted to provide express and informed consent to his/her own treatment 3. Allowed to transfer from involuntary to voluntary status 4. Prior to permitting a person to consent to his or her own treatment after having been previously found incompetent to consent to treatment. History of Present Illness Capacity: Lacks capacity Chief Complaint: Psychosis History of Present Illness: Ms. Cunninghma is a 47-year-old female who presented initially to the ED by [facility] for possible overdose. She was apparently somewhat altered at the time and received Narcan in the field. She may have written a suicide note. It is unclear what substances she took, although her urine toxicology was positive for benzodiazepines, cocaine and cannabinoids in her alcohol level was 249 on presentation here. Patient was medically admitted and seen in psychiatric consultation by Dr. Campos. Although she was apparently fairly uncooperative , it does appear that she was more lucid in her interaction with him then on presentation today. Reviewing the electronic medical record, I note the patient was seen in psychiatric consultation by Dr. Soto in 2011 with diagnoses of alcohol use disorder and anxiety at that time. Patient seen and examined with counselor and nurse. Chart reviewed. Case discussed with nursing staff. I find the patient in the hallway of the high acuity unit. She is quite confused. She is pushing at invisible buttons on the doors of other patients' rooms and flipping on and off the light switches. She seems to believe that she is in her own house and calls out repeatedly and loudly for someone named "Sherin." She is able to calm somewhat and participate in a brief interview. She does confirm that she believes that she is in her own house. Her affect is quite silly at times and inappropriate to the circumstance. She denies SI/HI and denies AVH although she appears frankly internally stimulated. Mood is "frustrated." Registration is 3 out of 3 and recall is 0 out of 3 at 5 minutes. She believes she is in her house and that the year is 2003. She is able to name 2 items but unable to repeat a phrase. When asked the current president she says "Osama." Psychiatric interview is limited because of patient's degree of psychiatric symptomatology. No acute physical complaints. Following our interview, the patient becomes quite agitated and banging on the kee, trying to get out. I have ordered her medicated with Haldol, Ativan and Benadryl IM stat ETO. Patient remains agitated even after receiving ETO and begins wandering into other patient's rooms. I am concerned for risk of harm to others as the patient is growing increasingly restive. I have ordered her placed in locked seclusion and was present on the unit at initiation of seclusion. Past psychiatric history: Patient is likely an unreliable historian. When I ask if she has a history of psychiatric diagnosis she says "no, I just was not good in history." She is not presently under the care of a psychiatrist. Unclear whether or when she has had previous psychiatric admissions. She denies a history of suicide attempts. Family history: The patient denies a family history of mental illness. Chemical dependency history: The patient says that she has been using alcohol and cannabis "lately" and using cocaine only "very recently." Documentation in the electronic medical record indicates that patient's alcohol use may be quite a bit more than she indicates. Social history: Patient is only able to say that she lives with Sherin and then repeatedly calls for Sherin. Given patient's degree of psychiatric impairment, I did reach out to patient's mother at the number listed in the electronic medical record for collateral information. She is willing to act as patient's healthcare surrogate. She notes that the patient has no real history of previous psychiatric illness other than substance use issues. She has certainly not had a confusional episode as she apparently is experiencing now. I discussed the treatment plan with patient's mother in her role as healthcare surrogate. - Inpatient Certification I certify that the inpatient services were ordered in accordance with Medicare regulations governing the order. This includes certification that hospital inpatient services are reasonable and necessary and in the case of services not specified as inpatient-only under 42 CFR 419.22(n), that they are appropriately provided as inpatient services in accordance to with the 2-midnight benchmark under 43 CFR 412.3(e) I certify that inpatient psychiatric hospital services are medically necessary. Evaluation and treatment and/or diagnostic testing are expected to improve the patient's condition. The patient needs on a daily basis, active treatment furnished directly by or requiring the supervision of inpatient psychiatric facility personnel. Estimated Total Length of Stay (Days): 7 Plans for Post Hospital Care: Not yet determined Review of Systems unobtainable due to mental condition PMFSH - History History Provided By: Patient - Medical History Medical History: Medical History (Last Reviewed 01/14/18 @ 23:19 by ROMULO Barnes) EtOH dependence HTN (hypertension) - Surgical History Surgical History: Surgical History (Last Updated 01/14/18 @ 23:19 by ROMULO Barnes) Surgical history unknown - Family History Family History: Family History (Last Reviewed 01/14/18 @ 23:18 by ROMULO Barnes) Other Family history unknown - Tobacco History Second Hand Smoke Exposure: Yes Tobacco Use In Past 30 Days: Yes Smoking Status: Current every day smoker Tobacco Type: Cigarettes - Alcohol History How Often Do You Have a Drink Containing Alcohol: 4 or more times a week - Substance Use History Substance History: Active Abuse - Substance Use Type Benzodiazepines Status: Active Route Used: By Mouth Reason for Use: Calm Down, Get High Crack/Cocaine Status: Active Route Used: Inhalation Frequency: REF. TO ANSWER Reason for Use: Get High Alcohol Status: Active Frequency: 4x per week Reason for Use: Calm Down Marijuana Status: Active Frequency: 1x per week Reason for Use: Calm Down Medications and Allergies Active Medications: Active Medications Al Hydrox/Mg Hydrox/Simethicone (Mag-Al Plus Susp Liq) 30 ml PO Q6H PRN PRN Reason: DYSPEPSIA Al Hydroxide/Mg Hydroxide (Milk Of Magnesia Liq) 30 ml PO Q12H PRN PRN Reason: Mild Constipation Bisacodyl (Dulcolax Supp) 10 mg RECTAL DAILY PRN PRN Reason: SEVERE CONSITIPATION Flumazenil (Romazecon Inj) 0.2 mg IV.PUSH Q1M PRN PRN Reason: OVERSEDATION Haloperidol Lactate (Haldol Inj) 1 mg IV.PUSH Q15M PRN PRN Reason: for severe agitation Lactulose (Lactulose Liq) 30 ml PO DAILY PRN PRN Reason: SEVERE CONSITIPATION Lorazepam (Ativan) 1 mg PO Q4H PRN PRN Reason: for CIWA 8-10 Lorazepam (Ativan) 2 mg PO Q2H PRN PRN Reason: for CIWA 11-14 Last Admin: 01/17/18 07:36 Dose: 2 mg Lorazepam (Ativan Inj) 2 mg IV.PUSH Q2H PRN PRN Reason: for CIWA 11-14 Lorazepam (Ativan Inj) 2 mg IV.PUSH Q1H PRN PRN Reason: for CIWA 15-20 Lorazepam (Ativan Inj) 2 mg IV.PUSH Q15M PRN PRN Reason: for CIWA > 20 Lorazepam (Ativan Inj) 1 mg IV.PUSH Q4H PRN PRN Reason: for CIWA 8-10 Metoprolol Succinate (Toprol Xl) 50 mg PO DAILY [facility] Last Admin: 01/17/18 09:29 Dose: 50 mg Senna/Docusate Sodium (Alyssia-Colace) 1 tab PO BID [facility] Last Admin: 01/17/18 09:27 Dose: 1 tab Sennosides (Senokot) 17.2 mg PO Q12H PRN PRN Reason: Moderate Constipation Triamterene/HCTZ (Dyazide 37.5/25 Mg) 1 cap PO DAILY [facility] Last Admin: 01/17/18 09:29 Dose: 1 cap Allergies Allergy/AdvReac Type Severity Reaction Status Date / Time No Known Allergies Allergy Unknown Uncoded 03/11/12 20:23 Home Medications Medication Instructions Recorded Confirmed Type metoprolol succinate 50 mg PO DAILY 01/15/18 01/15/18 History triamterene-hydrochlorothiazid 1 cap PO DAILY 01/15/18 01/15/18 History Results - Labs CBC & Chem 7: 01/17/18 09:09 Labs: Laboratory Tests 01/14/18 01/14/18 01/15/18 18:20 18:40 05:29 WBC 5.2 Hgb 12.3 MCV 107.6 H Plt Count 109 L Sodium Potassium Chloride Carbon Dioxide BUN Creatinine Estimated GFR AST 289 H ALT 197 H Alkaline Phosphatase 73 Total Creatine Kinase Troponin I Vitamin B12 Folate U Benzodiazepines Scrn Pos H Urine Cocaine Screen Pos H U Cannabinoids Screen Pos H Serum Alcohol 249 H 01/15/18 01/16/18 01/17/18 12:30 07:38 09:09 WBC Hgb MCV Plt Count Sodium 129 L Potassium 3.9 Chloride 90 L D Carbon Dioxide 29.4 BUN 8 Creatinine 0.95 Estimated GFR 63 L AST ALT Alkaline Phosphatase Total Creatine Kinase 71 Troponin I Less than 0.02 L Vitamin B12 510 Folate 10.9 U Benzodiazepines Scrn Urine Cocaine Screen U Cannabinoids Screen Serum Alcohol Labs reviewed. Toxicological findings noted. Transaminitis noted. Hyponatremia noted. Thrombocytopenia noted. Exam Vital signs: Vital Signs 01/16/18 16:20 01/17/18 05:10 Temperature 98.1 F 97.3 F L Pulse Rate 73 72 Respiratory Rate 18 18 Blood Pressure 157/89 H 146/79 H Pulse Oximetry 99 Intake & Output 01/16/18 01/17/18 01/17/18 18:59 06:59 18:59 Weight 54.5 kg Other: Weight On Admission 54.5 kg Narrative: Physical examination was completed by the medical team on the medical floor. On my examination today, the patient has no tremor. She is mildly diaphoretic. Mild mydriasis noted. No tongue fasciculations noted. No other motor abnormalities noted. Labs and vital signs reviewed. EKG on medical floor revealed QTC of 429 ms, not prolonged. Mental Status Examination Appearance: Disheveled Consciousness: Alert Orientation: Person Motor Activity: Normal gait Speech: Rapid Language: Other (Rambling) Fund of Knowledge: Inadequate Attention and Concentration: Inadequate Memory: Impaired Mood: Irritable, Other ("Frustrated") Affect: Irritable Thought Process & Associations: Disorganized Thought Content: Hallucinations Hallucination Type: Auditory (Responding to internal stimuli) Delusion Type: None Suicidal Ideation: No Suicidal Plan: No Suicidal Intention: No Homicidal Ideation: No Homicidal Plan: No Homicidal Intention: No Insight: Poor Judgment: Poor Assessment and Plan - Assessment (1) Unspecified psychosis Code(s): F29 - Unspecified psychosis not due to a substance or known physiological condition Status: Acute (2) Polysubstance abuse Code(s): F19.10 - Other psychoactive substance abuse, uncomplicated Status: Acute - Plan Plan: 47-year-old female with psychiatric history as detailed above who presents in transfer from the medical floor under a [place] act. On my examination today, the patient presents as floridly psychotic. She is also quite confused and disoriented. Although the patient was provided with a CIWA scale on the medical floor it does not appear that she received much in the way of Ativan, and given the timing of onset of her acute confusional state a withdrawal delirium is at the top of my differential, even though she does not have many stigmata of GABAergic withdrawal at present. Also in the differential is a delirium due to a general medical condition. A late effect of possible overdose (i.e. delirium due to substance intoxication) is also a possibility. Primary psychiatric illness is also possible, although less likely and the patient with no known history of psychosis. I will plan to admit the patient to the inpatient psychiatric unit for safety, observation and stabilization. Admit inpatient. Involuntary status. I have completed first opinion. Consult for second opinion. Request healthcare surrogate and guardian advocate. Patient's behavior is presently too disturbed to safely place on Med Psych unit , but we might consider transfer there once she is calmer. I will institute Zyprexa 2.5mg BID for management of psychosis and Ativan 2mg PO q4h scheduled for withdrawal with plans to taper and with CIWA with Ativan for breakthrough withdrawal. Thiamine and folate. Seizure precautions. R/B/A for medications discussed with healthcare surrogate. I will pursue laboratory workup of patient 's altered mental status. Might consider head imaging, but patient is presently too agitated to perform this, will defer to hospitalist recommendations. Hospitalist consultation. Vitals every 4 hours. Counselor to see. Collateral information. Disposition planning. Estimated length of stay: 5-7 days. Justification for Continued Inpatient Stay: See above Discharge Planning: Pending stabilization Request Healthcare Surrogate/Guardian Advocate?: Yes
--- NOTE | 2018-01-17 13:03 | P.CONPSY ---
Provisional Diagnosis Admission Date: January 16, 2018 15:11 [place] I.: 1. Unspecified psychosis Rule out withdrawal delirium Rule out delirium due to GMC 2. Polysubstance abuse [place] II.: Deferred History of Present Illness Service: Psychiatry Primary Care Provider: UNKNOWN History of Present Illness: Ms. Cunningham is a 47-year-old female who presented initially to the ED by [facility] for possible overdose. She was apparently somewhat altered at the time and received Narcan in the field. She may have written a suicide note. It is unclear what substances she took, although her urine toxicology was positive for benzodiazepines, cocaine and cannabinoids in her alcohol level was 249 on presentation here. Patient was medically admitted and seen in psychiatric consultation by Dr. Campos. Although she was apparently fairly uncooperative , it does appear that she was more lucid in her interaction with him then on presentation today. Reviewing the electronic medical record, I note the patient was seen in psychiatric consultation by Dr. Soto in 2011 with diagnoses of alcohol use disorder and anxiety at that time.Patient seen and examined with counselor and nurse. Chart reviewed. Case discussed with nursing staff. I find the patient in the hallway of the high acuity unit. She is quite confused. She is pushing at invisible buttons on the doors of other patients' rooms and flipping on and off the light switches. She seems to believe that she is in her own house and calls out repeatedly and loudly for someone named "Sherin." She is able to calm somewhat and participate in a brief interview. She does confirm that she believes that she is in her own house. Her affect is quite silly at times and inappropriate to the circumstance. She denies SI/HI and denies AVH although she appears frankly internally stimulated. Mood is "frustrated." Registration is 3 out of 3 and recall is 0 out of 3 at 5 minutes. She believes she is in her house and that the year is 2003. She is able to name 2 items but unable to repeat a phrase. When asked the current president she says "Osama." Psychiatric interview is limited because of patient 's degree of psychiatric symptomatology. No acute physical complaints. Following our interview, the patient becomes quite agitated and banging on the kee, trying to get out. I have ordered her medicated with Haldol, Ativan and Benadryl IM stat ETO. Patient remains agitated even after receiving ETO and begins wandering into other patient's rooms. I am concerned for risk of harm to others as the patient is growing increasingly restive. I have ordered her placed in locked seclusion and was present on the unit at initiation of seclusion. M The patient is a 47 year-old woman, domiciled in [place] with her 14 years old daughter, she is , unemployed, with a psychiatric history of anxiety, major depressive disorder, polysubstance dependence including alcohol, cocaine, cannabis, benzodiazepines, no previous psychiatric hospitalizations, no previous suicidal attempts, she is on Valium 5 mg 3 times daily, prescribed by PCP, medical history hypertension, who was brought in by [facility] after an intentional overdose. She was initially seen by me in the medical floor, I recommended her admission. Today she was reconsulted to me for second opinion. I find a patient that is occluded, extremely disorganized, I see her naked from the door, unable to provide any meaningful information for this evaluation. As per nurses, the patient had to be medicated with a ETO in order to calm her down given her level of agitation, aggressiveness and disorganization. [facility] - History History Provided By: Patient - Medical History Medical History: Medical History (Last Reviewed 01/14/18 @ 23:19 by ROMULO Barnes) EtOH dependence HTN (hypertension) - Surgical History Surgical History: Surgical History (Last Updated 01/14/18 @ 23:19 by ROMULO Barnes) Surgical history unknown - Family History Family History: Family History (Last Reviewed 01/14/18 @ 23:18 by ROMULO Barnes) Other Family history unknown - Tobacco History Second Hand Smoke Exposure: Yes Tobacco Use In Past 30 Days: Yes Smoking Status: Current every day smoker Tobacco Type: Cigarettes - Alcohol History How Often Do You Have a Drink Containing Alcohol: 4 or more times a week - Substance Use History Substance History: Active Abuse - Substance Use Type Benzodiazepines Status: Active Route Used: By Mouth Reason for Use: Calm Down, Get High Crack/Cocaine Status: Active Route Used: Inhalation Frequency: REF. TO ANSWER Reason for Use: Get High Alcohol Status: Active Frequency: 4x per week Reason for Use: Calm Down Marijuana Status: Active Frequency: 1x per week Reason for Use: Calm Down Medications and Allergies Active Medications: Active Medications Al Hydrox/Mg Hydrox/Simethicone (Mag-Al Plus Susp Liq) 30 ml PO Q6H PRN PRN Reason: DYSPEPSIA Al Hydroxide/Mg Hydroxide (Milk Of Magnesia Liq) 30 ml PO Q12H PRN PRN Reason: Mild Constipation Bisacodyl (Dulcolax Supp) 10 mg RECTAL DAILY PRN PRN Reason: SEVERE CONSITIPATION Flumazenil (Romazecon Inj) 0.2 mg IV.PUSH Q1M PRN PRN Reason: OVERSEDATION Folic Acid (Folic Acid) [address] [facility] Haloperidol Lactate (Haldol Inj) 1 mg IV.PUSH Q15M PRN PRN Reason: for severe agitation Lactulose (Lactulose Liq) 30 ml PO DAILY PRN PRN Reason: SEVERE CONSITIPATION Lorazepam (Ativan) 1 mg PO Q4H PRN PRN Reason: for CIWA 8-10 Lorazepam (Ativan) 2 mg PO Q2H PRN PRN Reason: for CIWA 11-14 Last Admin: 01/17/18 07:36 Dose: 2 mg Lorazepam (Ativan Inj) 2 mg IV.PUSH Q2H PRN PRN Reason: for CIWA 11-14 Lorazepam (Ativan Inj) 2 mg IV.PUSH Q1H PRN PRN Reason: for CIWA 15-20 Lorazepam (Ativan Inj) 2 mg IV.PUSH Q15M PRN PRN Reason: for CIWA > 20 Lorazepam (Ativan Inj) 1 mg IV.PUSH Q4H PRN PRN Reason: for CIWA 8-10 Lorazepam (Ativan) [address] [facility] Metoprolol Succinate (Toprol Xl) [address] [facility] Last Admin: 01/17/18 09:29 Dose: 50 mg Olanzapine (Zyprexa Inj) 2.5 mg IM BID PRN PRN Reason: Refuses PO Zyprexa Olanzapine (Zyprexa) 2.[address] [facility] Senna/Docusate Sodium (Alyssia-Colace) [address] [facility] Last Admin: 01/17/18 09:27 Dose: 1 tab Sennosides (Senokot) 17.2 mg PO Q12H PRN PRN Reason: Moderate Constipation Thiamine HCl (Vitamin B1) [address] [facility] Triamterene/HCTZ (Dyazide 37.5/25 Mg) [address] [facility] Last Admin: 01/17/18 09:29 Dose: 1 cap Allergies Allergy/AdvReac Type Severity Reaction Status Date / Time No Known Allergies Allergy Unknown Uncoded 03/11/12 20:23 Home Medications Medication Instructions Recorded Confirmed Type metoprolol succinate 50 mg PO DAILY 01/15/18 01/15/18 History triamterene-hydrochlorothiazid 1 cap PO DAILY 01/15/18 01/15/18 History Exam Vital signs: Vital Signs 01/16/18 16:20 01/17/18 05:10 01/17/18 12:10 Temperature 98.1 F 97.3 F L Pulse Rate 73 72 152 H Respiratory Rate 18 18 Blood Pressure 157/89 H 146/79 H 127/79 Pulse Oximetry 99 Intake & Output 01/16/18 01/17/18 01/17/18 18:59 06:59 18:59 Weight 54.5 kg Other: Weight On Admission 54.5 kg Mental Status Examination Appearance: Disheveled Consciousness: Alert Orientation: Person Motor Activity: Normal gait Speech: Rapid Language: Other (Rambling) Fund of Knowledge: Inadequate Attention and Concentration: Inadequate Memory: Impaired Mood: Irritable, Other ("Frustrated") Affect: Irritable Thought Process & Associations: Disorganized Thought Content: Hallucinations Hallucination Type: Auditory (Responding to internal stimuli) Delusion Type: None Suicidal Ideation: No Suicidal Plan: No Suicidal Intention: No Homicidal Ideation: No Homicidal Plan: No Homicidal Intention: No Insight: Poor Judgment: Poor Assessment and Plan - Assessment (1) Unspecified psychosis Code(s): F29 - Unspecified psychosis not due to a substance or known physiological condition Status: Acute (2) Polysubstance abuse Code(s): F19.10 - Other psychoactive substance abuse, uncomplicated Status: Acute - Plan Plan: I have seen and examined this patient, review Dr. Silva documentation, I agree and concur with his assessment and plan. Consult appreciated. Justification for Continued Inpatient Stay: Continue psychiatric admission. Request Healthcare Surrogate/Guardian Advocate?: Yes
--- NOTE | 2018-01-17 14:18 | P.CON ---
History of Present Illness Service: [facility] Consult date: 01/17/18 Requesting Physician: Leonel Silva Reason for Consult: [facility] Primary Care Provider: UNKNOWN Chief Complaint: "i got here" History of Present Illness: Patient is a 47 y/o female with a history of polysubstance abuse was brought in by [facility] after an intentional overdose. Patient has altered mental status, delirious. She is not admitted to inpatient psychiatry unit for further evaluation. Consulted for assistance with medical management. Patient seen and examined today. As per nursing, patient has been wandering the unit is now in seclusion and was given multiple doses of Ativan and haldol. She tries to open all the doors in the facility and at the same time she has been yelling and screaming. When patient was interviewed, patient states that she was doing okay. She was partly naked in the room taking off her clothes. She says that "it is okay I got everything from [employer] its on sale." Patient was asked what kind of medication she took, patient states that she has Klonopin that is not hers it was her friends Que. She keeps on calling a friend "Sherin." Patient also admits to using cocaine. States that she does not use it every time only when Sherin comes in town. Patient noted to be hallucinating trying to place something on her hands and trying to eat it. Poor historian, incoherent at times when answering questions. States that she has history of high blood pressure but does not know what medication she is taking. She denies any surgical history. Admits to drinking alcohol. As per nursing she has been ordering rudy in the nurses station since this morning. Tachycardia possible withdrawal from benzo, cocaine elevated MCV, MCH possibly from alcohol use Hyponatremia possibly from alcohol use Review of Systems unobtainable due to mental status PMFSH - History History Provided By: Patient - Medical History Medical History: Medical History (Last Reviewed 01/17/18 @ 15:15 by ROMULO Melgar) EtOH dependence HTN (hypertension) - Surgical History Surgical History: Surgical History (Last Reviewed 01/17/18 @ 15:15 by ROMULO Melgar) Surgical history unknown - Family History Family History: Family History (Last Reviewed 01/17/18 @ 15:19 by LESTER Melgar Other Family history unknown - Social History I have reviewed the patient's Social History: Yes - Tobacco History Second Hand Smoke Exposure: Yes Tobacco Use In Past 30 Days: Yes Smoking Status: Current every day smoker Tobacco Type: Cigarettes - Alcohol History How Often Do You Have a Drink Containing Alcohol: 4 or more times a week - Substance Use History Substance History: Active Abuse - Substance Use Type Benzodiazepines Status: Active Route Used: By Mouth Reason for Use: Calm Down, Get High Crack/Cocaine Status: Active Route Used: Inhalation Frequency: REF. TO ANSWER Reason for Use: Get High Alcohol Status: Active Frequency: 4x per week Reason for Use: Calm Down Marijuana Status: Active Frequency: 1x per week Reason for Use: Calm Down Medications and Allergies Active Medications: Active Medications Al Hydrox/Mg Hydrox/Simethicone (Mag-Al Plus Susp Liq) 30 ml PO Q6H PRN PRN Reason: DYSPEPSIA Al Hydroxide/Mg Hydroxide (Milk Of Magnesia Liq) 30 ml PO Q12H PRN PRN Reason: Mild Constipation Bisacodyl (Dulcolax Supp) 10 mg RECTAL DAILY PRN PRN Reason: SEVERE CONSITIPATION Flumazenil (Romazecon Inj) 0.2 mg IV.PUSH Q1M PRN PRN Reason: OVERSEDATION Folic Acid (Folic Acid) 1 mg PO DAILY [facility] Haloperidol Lactate (Haldol Inj) 1 mg IV.PUSH Q15M PRN PRN Reason: for severe agitation Lactulose (Lactulose Liq) 30 ml PO DAILY PRN PRN Reason: SEVERE CONSITIPATION Lorazepam (Ativan) 1 mg PO Q4H PRN PRN Reason: for CIWA 8-10 Lorazepam (Ativan) 2 mg PO Q2H PRN PRN Reason: for CIWA 11-14 Last Admin: 01/17/18 07:36 Dose: 2 mg Lorazepam (Ativan) 2 mg PO Q4H [facility] Metoprolol Succinate (Toprol Xl) 50 mg PO DAILY [facility] Last Admin: 01/17/18 09:29 Dose: 50 mg Olanzapine (Zyprexa Inj) 2.5 mg IM BID PRN PRN Reason: Refuses PO Zyprexa Olanzapine (Zyprexa) 2.5 mg PO BID [facility] Senna/Docusate Sodium (Alyssia-Colace) 1 tab PO BID [facility] Last Admin: 01/17/18 09:27 Dose: 1 tab Sennosides (Senokot) 17.2 mg PO Q12H PRN PRN Reason: Moderate Constipation Thiamine HCl (Vitamin B1) 100 mg PO BID [facility] Triamterene/HCTZ (Dyazide 37.5/25 Mg) 1 cap PO DAILY [facility] Last Admin: 01/17/18 09:29 Dose: 1 cap Allergies Allergy/AdvReac Type Severity Reaction Status Date / Time No Known Allergies Allergy Unknown Uncoded 03/11/12 20:23 Home Medications Medication Instructions Recorded Confirmed Type metoprolol succinate 50 mg PO DAILY 01/15/18 01/15/18 History triamterene-hydrochlorothiazid 1 cap PO DAILY 01/15/18 01/15/18 History Physical Exam Vital signs: Vital Signs 01/16/18 16:20 01/17/18 05:10 01/17/18 12:10 Temperature 98.1 F 97.3 F L Pulse Rate 73 72 152 H Respiratory Rate 18 18 Blood Pressure 157/89 H 146/79 H 127/79 Pulse Oximetry 99 01/17/18 13:05 Temperature Pulse Rate 121 H Respiratory Rate Blood Pressure 113/78 Pulse Oximetry 97 Intake & Output 01/16/18 01/17/18 01/17/18 18:59 06:59 18:59 Weight 54.5 kg Other: Weight On Admission 54.5 kg Narrative: GENERAL: This is a well-nourished, well-developed patient, in no apparent distress. SKIN: Warm and dry. HEENT: Normocephalic. Pupils equal round and reactive. Nose without bleeding. Airway patent. NECK: Trachea midline. CARDIOVASCULAR: Tachycardia without murmurs, gallops, or rubs. RESPIRATORY: Clear to auscultation. Breath sounds equal bilaterally. No wheezes , rales, or rhonchi. GASTROINTESTINAL: Abdomen soft, non-tender, nondistended. Bowel Sounds normoactive x4. MUSCULOSKELETAL: Extremities without clubbing, cyanosis, or edema. NEUROLOGICAL: Awake and alert. Moves all extremities. Normal to incoherent speech. Assessment and Plan - Plan Patient is a 47 y/o female with a history of polysubstance abuse was brought in by [facility] after an intentional overdose. Patient has altered mental status, delirious. She is not admitted to inpatient psychiatry unit for further evaluation. Consulted for assistance with medical management. Overdose Psychosis, delirium Anxiety -Possibly substance related -Managed by psychiatry team ETOH, Benzo withdrawal -Tachycardia Possibly related to ETOH, benzo withdrawals -Monitor heart rate. Ativan as needed. -CIWA protocol HTN -Continue home meds, add metoprolol 25mg x 1 dose now -Monitor BP Macrocytosis Thrombocytopenia Hyponatremia -Possibly related to alcohol use -Folic acid, thiamine DVT prop early ambulation Thank you for this consultation. We will follow patient with you. Code Status: Full code Discussed Condition With: Nursing Discharge Planning: DC disposition by primary team
[2018-01-17 15:56] LABS: Albumin 4.6 g/dL (3.4-5.0)
[2018-01-17 16:05] LABS: Thyroid Stimulating Hormone 6.43 uIU/mL (0.358-3.740); Total Protein 9.2 g/dL (6.4-8.2)
[2018-01-17 16:16] LABS: Hemoglobin A1c 5.1 % (4.3-6.0)
[2018-01-17 16:18] LABS: CKMB Percent 1.3 % (0.0-4.0); Creatine Kinase MB 9.7 ng/mL (0.5-3.6)
[2018-01-17] MEDS: OLANZapine 2.5 MG Tablet PO SCH (22:32)
[2018-01-18] MEDS: Folic Acid 1 MG Tablet PO SCH (09:05)
[2018-01-18] MEDS: OLANZapine 2.5 MG Tablet PO SCH ×2 (09:05→22:09)
[2018-01-18] MEDS: Senna/Docusate Sodium 8.6/50 MG Tablet PO SCH ×2 (09:05→22:09)
[2018-01-18 09:14] LABS: Alanine Aminotransferase 123 U/L (10-53); Alkaline Phosphatase 70 U/L (45-117); Anion Gap 15 meq/L (5-15); Aspartate Aminotransferase 134 U/L (15-37); Blood Urea Nitrogen 22 mg/dL (7-18); Calcium 9.1 mg/dL (8.5-10.1); Carbon Dioxide 24.5 meq/L (21.0-32.0); Chloride 96 meq/L (98-107); Creatine Kinase 2193 U/L (26-192); Glomerular Filtration Rate 64 mL/min (>89); Glucose,Random 70 mg/dL (74-106); Potassium 3.3 meq/L (3.5-5.1); Sodium 135 meq/L (136-145)
[2018-01-18 09:33] LABS: CKMB Percent 0.5 % (0.0-4.0); Creatine Kinase MB 10.5 ng/mL (0.5-3.6)
[2018-01-18] MEDS: Sod Chloride 0.9% Inj 1,000 ML IV.CONT SCH ×3 (10:03→22:08)
--- NOTE | 2018-01-18 13:00 | P.PN ---
Subjective Interval history: Follow-up visit EtOH abuse, benzo overdose/abuse, psychosis. Patient seen and examined today. Awake and alert. More coherent than yesterday. Patient states she is weak but doing okay. Denies pain and discomfort. Denies SOB/ dyspnea. Denies chest pain, palpitations, headaches, dizziness. Denies fevers, chills, n/v/d. Denies dysuria. Physical Exam Vital signs: Vital Signs 01/17/18 13:05 01/17/18 15:00 01/17/18 16:08 Temperature Pulse Rate 121 H 153 H 129 H Respiratory Rate Blood Pressure 113/78 138/103 H 158/88 H Pulse Oximetry 97 01/17/18 18:40 01/18/18 00:55 01/18/18 05:49 Temperature 98.9 F Pulse Rate 103 H 80 Respiratory Rate 17 16 Blood Pressure 136/85 108/59 L Pulse Oximetry 96 01/18/18 09:00 Temperature Pulse Rate Respiratory Rate 16 Blood Pressure Pulse Oximetry Intake & Output 01/17/18 01/18/18 01/18/18 18:59 06:59 18:59 Intake Total 120 / 120 0 / 0 Balance 120 / 120 0 / 0 Intake: Oral 120 / 120 0 / 0 Narrative: GENERAL: This is a well-nourished, well-developed patient, in no apparent distress. SKIN: Warm and dry. HEENT: Normocephalic. Pupils equal round and reactive. Nose without bleeding. Airway patent. NECK: Trachea midline. CARDIOVASCULAR: Tachycardia without murmurs, gallops, or rubs. RESPIRATORY: Clear to auscultation. Breath sounds equal bilaterally. No wheezes , rales, or rhonchi. GASTROINTESTINAL: Abdomen soft, non-tender, nondistended. Bowel Sounds normoactive x4. MUSCULOSKELETAL: Extremities without clubbing, cyanosis, or edema. NEUROLOGICAL: Awake and alert. Moves all extremities. Normal speech. Results - Labs CBC & Chem 7: 01/19/18 05:55 Laboratory Results - last 24 hr 01/17/18 01/17/18 01/17/18 09:09 14:56 14:56 Sodium Potassium Chloride Carbon Dioxide Anion Gap BUN Creatinine Estimated GFR Random Glucose Hemoglobin A1c 5.1 Calcium Total Bilirubin 1.3 H Cancelled Direct Bilirubin 0.4 H Cancelled Indirect Bilirubin 0.9 H Cancelled AST 196 H Cancelled ALT 165 H Cancelled Alkaline Phosphatase 86 Cancelled Ammonia Total Creatine Kinase 761 H CK-MB (CK-2) 9.7 H CK-MB (CK-2) % 1.3 Total Protein 9.2 H D Cancelled Albumin 4.6 Cancelled TSH 6.430 H Free T4 Beta HCG, Quant RPR HIV 1&2 Ab/P24 Ag 4thGn 01/17/18 01/17/18 01/17/18 17:00 17:00 17:00 Sodium Potassium Chloride Carbon Dioxide Anion Gap BUN Creatinine Estimated GFR Random Glucose Hemoglobin A1c Calcium Total Bilirubin Direct Bilirubin Indirect Bilirubin AST ALT Alkaline Phosphatase Ammonia 52 H Total Creatine Kinase CK-MB (CK-2) CK-MB (CK-2) % Total Protein Albumin TSH Free T4 Beta HCG, Quant RPR Nonreactive HIV 1&2 Ab/P24 Ag 4thGn Nonreactive 01/17/18 01/17/18 01/18/18 17:00 17:00 08:01 Sodium 135 L Potassium 3.3 L Chloride 96 L Carbon Dioxide 24.5 Anion Gap 15 BUN 22 H Creatinine 0.94 Estimated GFR 64 L Random Glucose 70 L Hemoglobin A1c Calcium 9.1 Total Bilirubin 1.5 H Direct Bilirubin Indirect Bilirubin AST 134 H ALT 123 H Alkaline Phosphatase 70 Ammonia Total Creatine Kinase 2193 H CK-MB (CK-2) 10.5 H CK-MB (CK-2) % 0.5 Total Protein 8.0 D Albumin 4.0 D TSH Free T4 1.06 Beta HCG, Quant 1 RPR HIV 1&2 Ab/P24 Ag 4thGn Assessment and Plan - Plan Patient is a 47 y/o female with a history of polysubstance abuse was brought in by [facility] after an intentional overdose. Patient has altered mental status, delirious. She is not admitted to inpatient psychiatry unit for further evaluation. Consulted for assistance with medical management. Overdose Psychosis, delirium Anxiety -Possibly substance related -Managed by psychiatry team ETOH, Benzo withdrawal -Tachycardia Possibly related to ETOH, benzo withdrawals -Monitor heart rate. Ativan as needed. -CIWA protocol -Improved Mild rhabdomyolysis -CK 2193 -NS IV -Recheck and trend CK HTN -Continue metoprolol 50mg daily -Monitor BP -Improved Macrocytosis Thrombocytopenia Hyponatremia -Possibly related to alcohol use -Folic acid, thiamine DVT prop early ambulation Code Status: Full Code Discussed Condition With: Patient, nursing Discharge Planning: DC disposition by primary team
--- NOTE | 2018-01-18 15:47 | P.PNPSY ---
Subjective Chief Complaint: Psychosis Remarks: Reviewed electronic medical records and discussed case with staff. Follow-up was conducted in patient's room with 1 1 sitter present. Staff reports that patient is "doing a lot better". She is found resting quietly on the bed. Nurse reports she has been drowsy today she did get up in the little bit and her mother visited. She additionally states patient has been cooperative and pleasant but somewhat confused. When asked how she is feeling today the patient responds "extremely tweak". States that she has been sleeping well when asked how her appetite's been she states "I do not know". She denies feeling suicidal at this time. Due to the patient's lethargy, and her improvement in behavior, discontinued the scheduled 2 mg Ativan administrations. I have left the CIWA protocol in place for use as indicated. Mental Status Examination Appearance: Disheveled Consciousness: Alert Orientation: Person Motor Activity: Normal gait Speech: Rapid Language: Other (Rambling) Fund of Knowledge: Inadequate Attention and Concentration: Inadequate Memory: Impaired Mood: Irritable, Other ("Frustrated") Affect: Irritable Thought Process & Associations: Disorganized Thought Content: Hallucinations Hallucination Type: Auditory (Responding to internal stimuli) Delusion Type: None Suicidal Ideation: No Suicidal Plan: No Suicidal Intention: No Homicidal Ideation: No Homicidal Plan: No Homicidal Intention: No Insight: Poor Judgment: Poor Assessment and Plan - Assessment (1) Depression Code(s): F32.9 - Major depressive disorder, single episode, unspecified Status : Acute - Plan Plan: Patient will be reevaluated Sunday by the attending psychiatrist. Continue with current treatment plan. Justification for Continued Inpatient Stay: Moving this patient to a less restrictive environment would likely result in decompensation. Request Healthcare Surrogate/Guardian Advocate?: Yes (1) Depression Qualifiers: Depression Type: major depressive disorder Major depression recurrence: recurrent Major depression episode severity: severe Psychotic features: without psychotic features
[2018-01-19] MEDS: Sod Chloride 0.9% Inj 1,000 ML IV.CONT SCH ×2 (02:33→09:30)
[2018-01-19 06:35] LABS: Anion Gap 11 meq/L (5-15); Blood Urea Nitrogen 10 mg/dL (7-18); Calcium 7.9 mg/dL (8.5-10.1); Carbon Dioxide 24.3 meq/L (21.0-32.0); Chloride 107 meq/L (98-107); Creatine Kinase 828 U/L (26-192); Glomerular Filtration Rate Greater Than 89 mL/min (>89); Glucose,Random 81 mg/dL (74-106); Potassium 3.2 meq/L (3.5-5.1); Sodium 142 meq/L (136-145)
[2018-01-19 07:03] LABS: CKMB Percent 0.3 % (0.0-4.0); Creatine Kinase MB 2.5 ng/mL (0.5-3.6)
[2018-01-19] MEDS ORDERED: Potassium Chloride 25 MEQ Effervescent Tablet PO ONE (08:15)
[2018-01-19] MEDS: OLANZapine 2.5 MG Tablet PO SCH ×2 (09:41→21:33)
[2018-01-19] MEDS: Folic Acid 1 MG Tablet PO SCH (09:41)
[2018-01-19] MEDS: Senna/Docusate Sodium 8.6/50 MG Tablet PO SCH ×2 (09:51→20:44)
--- NOTE | 2018-01-19 11:00 | P.PN ---
Subjective Interval history: Follow-up visit EtOH abuse, benzo overdose/abuse, psychosis, rhabdomyolysis. Patient seen and examined today. Awake and alert. States she is doing okay. States she is sore throughout her body. Denies SOB/ dyspnea. Denies chest pain , palpitations, headaches, dizziness. Denies fevers, chills, n/v/d. Denies dysuria. Physical Exam Vital signs: Vital Signs 01/18/18 18:26 01/19/18 05:53 01/19/18 08:51 Temperature 98.1 F 98 F Pulse Rate 76 74 65 Respiratory Rate 16 16 Blood Pressure 109/74 101/55 L 116/59 L Pulse Oximetry 97 98 Intake & Output 01/18/18 01/19/18 01/19/18 18:59 06:59 18:59 Intake Total 1959 2340 / 2340 0 / 0 Balance 1959 2340 / 2340 0 / 0 Intake: IV 1000 / 1000 1999 0 / 0 NS Inj 1,000 ML @ 200 mls/hr IV 1000 / 1000 1999 0 / 0 .CONT .Q5H [facility] Rx#:[id number] Oral 960 / 960 240 / 240 Oral Supplement 100 / 100 Other: # Voids 2 # Bowel Movements 0 Narrative: GENERAL: This is a well-nourished, well-developed patient, in no apparent distress. SKIN: Warm and dry. Multiple stages of healing ecchymosis HEENT: Normocephalic. Pupils equal round and reactive. Nose without bleeding. Airway patent. NECK: Trachea midline. CARDIOVASCULAR: Regular rate and rhythm without murmurs, gallops, or rubs. RESPIRATORY: Clear to auscultation. Breath sounds equal bilaterally. No wheezes , rales, or rhonchi. GASTROINTESTINAL: Abdomen soft, non-tender, nondistended. Bowel Sounds normoactive x4. MUSCULOSKELETAL: Extremities without clubbing, cyanosis, or edema. NEUROLOGICAL: Awake and alert. Moves all extremities. Normal speech. Results - Labs CBC & Chem 7: 01/19/18 05:55 Laboratory Results - last 24 hr 01/19/18 05:55 Sodium 142 Potassium 3.2 L Chloride 107 D Carbon Dioxide 24.3 Anion Gap 11 BUN 10 Creatinine 0.56 Estimated GFR Greater than 89 Random Glucose 81 Calcium 7.9 L D Total Creatine Kinase 828 H CK-MB (CK-2) 2.5 CK-MB (CK-2) % 0.3 Assessment and Plan - Plan Patient is a 47 y/o female with a history of polysubstance abuse was brought in by [facility] after an intentional overdose. Patient has altered mental status, delirious. She is not admitted to inpatient psychiatry unit for further evaluation. Consulted for assistance with medical management. Overdose Psychosis, delirium Anxiety -Possibly substance related -Managed by psychiatry team ETOH, Benzo withdrawal -Tachycardia Possibly related to ETOH, benzo withdrawals. Improved -Monitor heart rate. Ativan as needed. -CIWA protocol -Improved Mild rhabdomyolysis -CK 2193 -->828 -IVF continue -Recheck and trend CK -DC IV if improved HTN -Continue metoprolol 50mg daily -Monitor BP -Improved Macrocytosis Thrombocytopenia Hyponatremia -Possibly related to alcohol use -Folic acid, thiamine Hypokalemia -Potassium replaced DVT prop early ambulation Code Status: Full Code Discussed Condition With: Patient, nurse Discharge Planning: DC disposition by primary team
[2018-01-19] MEDS: Sodium Chloride 0.45 % Inj 1,000 ML IV.CONT SCH ×2 (11:55→18:45)
--- NOTE | 2018-01-19 19:22 | P.PNPSY ---
Subjective Chief Complaint: Psychosis Remarks: Patient was seen and case discussed with nursing. Interview conducted with family in the room. Chief complaint today is insomnia. Patient gives consent for trazodone. Per nursing, CIWA is 0. Patient is also requesting a nicotine patch. She does minimize her substance use. She denies suicidal or homicidal ideation intent plan or plan Mental Status Examination Appearance: Disheveled Consciousness: Alert Orientation: Person, Place, Date/Time, Situation Motor Activity: Normal gait Speech: Pressured Language: Adequate Fund of Knowledge: Adequate Attention and Concentration: Adequate Memory: Unremarkable Mood: Appropriate Affect: Appropriate Thought Process & Associations: Disorganized Thought Content: Appropriate Hallucination Type: None Delusion Type: None Suicidal Ideation: No Suicidal Plan: No Suicidal Intention: No Homicidal Ideation: No Homicidal Plan: No Homicidal Intention: No Insight: Poor Judgment: Poor Assessment and Plan - Assessment (1) Unspecified psychosis Code(s): F29 - Unspecified psychosis not due to a substance or known physiological condition Status: Acute (2) Polysubstance abuse Code(s): F19.10 - Other psychoactive substance abuse, uncomplicated Status: Acute - Plan Plan: Continue current treatment plan Justification for Continued Inpatient Stay: Patient would decompensate in a less restrictive setting Request Healthcare Surrogate/Guardian Advocate?: Yes
[2018-01-19] MEDS ORDERED: traZODone 50 MG Tablet PO SCH (21:00)
[2018-01-20] MEDS: Sodium Chloride 0.45 % Inj 1,000 ML IV.CONT SCH ×3 (03:41→10:42)
[2018-01-20 08:44] LABS: Anion Gap 7 meq/L (5-15); Blood Urea Nitrogen 3 mg/dL (7-18); Calcium 8.2 mg/dL (8.5-10.1); Chloride 109 meq/L (98-107); Glomerular Filtration Rate Greater Than 89 mL/min (>89); Glucose,Random 123 mg/dL (74-106); Potassium 3.7 meq/L (3.5-5.1); Sodium 141 meq/L (136-145)
[2018-01-20 08:47] LABS: Creatine Kinase 380 U/L (26-192)
[2018-01-20 09:08] LABS: CKMB Percent 0.3 % (0.0-4.0)
[2018-01-20] MEDS: Senna/Docusate Sodium 8.6/50 MG Tablet PO SCH ×2 (09:31→22:57)
[2018-01-20] MEDS: OLANZapine 2.5 MG Tablet PO SCH ×2 (09:31→21:03)
[2018-01-20] MEDS: Folic Acid 1 MG Tablet PO SCH (09:31)
--- NOTE | 2018-01-20 13:30 | P.PN ---
Subjective Interval history: Follow-up visit EtOH abuse, benzo overdose/abuse, psychosis, rhabdomyolysis. Patient seen and examined today. Awake and alert, oriented to place, date, time , person. Denies SOB/ dyspnea. Denies chest pain, palpitations, headaches, dizziness. Denies fevers, chills, n/v/d. Denies dysuria. Physical Exam Vital signs: Vital Signs 01/19/18 17:54 01/20/18 06:00 Temperature 98.6 F 98.0 F Pulse Rate 66 73 Respiratory Rate 18 16 Blood Pressure 144/80 H 159/75 H Pulse Oximetry 97 97 Intake & Output 01/19/18 01/20/18 01/20/18 18:59 06:59 18:59 Intake Total 1360 / 1360 1340 / 1340 1120 / 1120 Balance 1360 / 1360 1340 / 1340 1120 / 1120 Intake: IV 1000 / 1000 1000 / 1000 1000 / 1000 NS Inj 1,000 ML @ 200 mls/hr IV 0 / 0 .CONT .Q5H [facility] Rx#:[id number] 1/2 Normal Saline Inj 1,000 ML 1000 / 1000 1000 / 1000 1000 / 1000 @ 150 mls/hr IV.CONT .Q6H40M [facility] Rx#:[id number] Oral 360 / 360 240 / 240 120 / 120 Oral Supplement 100 / 100 Other: # Voids 2 Narrative: GENERAL: This is a well-nourished, well-developed patient, in no apparent distress. SKIN: Warm and dry. Multiple stages of healing ecchymosis HEENT: Normocephalic. Pupils equal round and reactive. Nose without bleeding. Airway patent. NECK: Trachea midline. CARDIOVASCULAR: Regular rate and rhythm without murmurs, gallops, or rubs. RESPIRATORY: Clear to auscultation. Breath sounds equal bilaterally. No wheezes , rales, or rhonchi. GASTROINTESTINAL: Abdomen soft, non-tender, nondistended. Bowel Sounds normoactive x4. MUSCULOSKELETAL: Extremities without clubbing, cyanosis, or edema. NEUROLOGICAL: Awake and alert. Moves all extremities. Normal speech. Results - Labs CBC & Chem 7: 01/20/18 06:50 Laboratory Results - last 24 hr 01/20/18 06:50 Sodium 141 Potassium 3.7 Chloride 109 H Carbon Dioxide 25.0 Anion Gap 7 BUN 3 L Creatinine 0.55 Estimated GFR Greater than 89 Random Glucose 123 H Calcium 8.2 L Total Creatine Kinase 380 H CK-MB (CK-2) Less than 1.0 CK-MB (CK-2) % 0.3 Assessment and Plan - Plan Patient is a 47 y/o female with a history of polysubstance abuse was brought in by [facility] after an intentional overdose. Patient has altered mental status, delirious. She is not admitted to inpatient psychiatry unit for further evaluation. Consulted for assistance with medical management. Overdose Psychosis, delirium Anxiety -Possibly substance related -Managed by psychiatry team ETOH, Benzo withdrawal -Tachycardia Possibly related to ETOH, benzo withdrawals. Improved -Monitor heart rate. Ativan as needed. -CIWA protocol -Improved Mild rhabdomyolysis -CK 2193 -->828 -->380 -DC IV -Improved HTN Tachycardia -Continue metoprolol 50mg daily -Monitor BP -Improved Macrocytosis Thrombocytopenia Hyponatremia -Possibly related to alcohol use -Folic acid, thiamine Hypokalemia -Potassium replaced -Improved DVT prop early ambulation Stable from Hospitalist standpoint. We will sign off. Reconsult as needed. Thank you. Patient may go to regular psychiatric unit Code Status: Full Code Discussed Condition With: Patient, nursing Discharge Planning: DC disposition by primary team
--- NOTE | 2018-01-20 14:58 | P.PNPSY ---
Subjective Chief Complaint: Psychosis Remarks: Patient was seen and case discussed with nursing. Patient is pleasant but somewhat defensive. She got quite guarded when asked about her thoughts throughout the day. 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 She was visiting with her children during the interview and they provide collateral data no suicidal material was relayed to them. Patient is compliant with her medications. She did not sleep well with the trazodone Mental Status Examination Appearance: Disheveled Consciousness: Alert Orientation: Person, Place, Date/Time, Situation Motor Activity: Normal gait Speech: Pressured Language: Adequate Fund of Knowledge: Adequate Attention and Concentration: Adequate Memory: Unremarkable Mood: Appropriate Affect: Appropriate Thought Process & Associations: Intact Thought Content: Appropriate Hallucination Type: None Delusion Type: None Suicidal Ideation: No Suicidal Plan: No Suicidal Intention: No Homicidal Ideation: No Homicidal Plan: No Homicidal Intention: No Insight: Poor Judgment: Poor Assessment and Plan - Assessment (1) Unspecified psychosis Code(s): F29 - Unspecified psychosis not due to a substance or known physiological condition Status: Acute (2) Polysubstance abuse Code(s): F19.10 - Other psychoactive substance abuse, uncomplicated Status: Acute - Plan Plan: Increase trazodone to 100 mg p.o. nightly Justification for Continued Inpatient Stay: Patient would decompensate in a less restrictive setting Request Healthcare Surrogate/Guardian Advocate?: Yes
[2018-01-20] MEDS: traZODone 100 MG Tablet PO SCH (21:03)
[2018-01-21] MEDS: OLANZapine 2.5 MG Tablet PO SCH ×2 (09:57→21:16)
[2018-01-21] MEDS: Senna/Docusate Sodium 8.6/50 MG Tablet PO SCH ×2 (09:57→21:16)
[2018-01-21] MEDS: Folic Acid 1 MG Tablet PO SCH (09:57)
--- NOTE | 2018-01-21 13:42 | P.PNPSY ---
Subjective Chief Complaint: Psychosis Remarks: Patient seen and examined with nurse. Chart reviewed. Patient has not received any Ativan by CIWA scale since the . Case discussed with nursing staff. Patient was apparently kept with one-to-one sitter over the weekend even after her delirium resolved. Patient has presented no behavioral problem per nursing staff. Case discussed with counselor. On my examination today, the patient is oriented 3. There is no evidence of ongoing delirium. She is future oriented. She denies any SI or HI. She denies any AVH. She says that prior to admission she had been feeling stressed out because she had just lost her brother and had experienced recent dissolution of a 27 year marriage and was not sleeping well and so she took sleeping pills given to her by a friend. Denies side effects from medications. No physical complaints. Vital Signs Temp Pulse Resp BP Pulse Ox 01/21/18 06:04 97.4 F L 71 16 111/58 L 93 L 01/20/18 18:00 98.7 F 73 17 124/73 98 Intake and Output 01/20/18 01/21/18 01/21/18 22:59 06:59 14:59 Other: Weight 85.8 kg Labs reviewed. Review of Systems All other systems reviewed negative except as stated in HPI Mental Status Examination Appearance: Appropriate Consciousness: Alert Orientation: Person, Place, Date/Time, Situation Motor Activity: Normal gait, Other (No signs of withdrawal noted. No motor abnormalities noted.) Speech: Unremarkable Language: Adequate Fund of Knowledge: Adequate Attention and Concentration: Adequate Memory: Unremarkable Mood: Appropriate Affect: Appropriate Thought Process & Associations: Intact, Logical Thought Content: Appropriate Hallucination Type: None Delusion Type: None Suicidal Ideation: No Suicidal Plan: No Suicidal Intention: No Homicidal Ideation: No Homicidal Plan: No Homicidal Intention: No Mental Status Exam Remarks: Insight and judgment are perhaps fair. Assessment and Plan - Assessment (1) Unspecified psychosis Code(s): F29 - Unspecified psychosis not due to a substance or known physiological condition Status: Acute (2) Polysubstance abuse Code(s): F19.10 - Other psychoactive substance abuse, uncomplicated Status: Acute - Plan Plan: Patient much improved today. No evidence of ongoing delirium. Discontinue CIWA scale. Counselor to call for collateral. Discontinue one-to-one as this is no longer needed. Patient may sign voluntary. Hospitalist input noted and appreciated. Continue to monitor on the inpatient unit. Continue other care as ordered. Justification for Continued Inpatient Stay: Pending collateral information. Discharge Planning: Possible discharge tomorrow, Sunday Request Healthcare Surrogate/Guardian Advocate?: Yes
[2018-01-21] MEDS: traZODone 100 MG Tablet PO SCH (21:16)
[2018-01-22 05:45] VITALS: BP 105/63; PULSE 70; RESP 17; TEMP 98; O2SAT 97
[2018-01-22] MEDS: Folic Acid 1 MG Tablet PO SCH (08:36)
[2018-01-22] MEDS: OLANZapine 2.5 MG Tablet PO SCH (08:36)
[2018-01-22] MEDS: Senna/Docusate Sodium 8.6/50 MG Tablet PO SCH (08:37)
--- NOTE | 2018-01-22 15:38 | P.TTN ---
- Patient Problems Problems: 1. Discharge planning 2. Medication compliance 3. Knowledge deficit 4. Lack of coping skills - Progress Toward Goals Provider Present: Dr. Ariadna Silva (01/22/18 collateral confirmed supportive home to go to, anticipated d/c home today) Psychiatric Counselors Present: Phyllis Phillips LCSW (01/22/18 follow up with [facility] completed, referred to [facility] outpatient and substance abuse follow up with [facility] ) Psychiatric Therapist Input: limited insight but cooperative and visible in the milieu Group Spec/RT/OT/SIMMS Present: GABI Dela Cruz Group Spec/RT/OT/SIMMS Input: 01/22/18 comes to select groups - Documentation Teaching Recipient: Patient
--- NOTE | 2018-01-22 16:35 | P.DSPSY ---
Psychiatry Discharge Summary Inpatient Psychiatric care?: Yes Advance Directives: No Mental Health Advance Directive: No Health Care Proxy: No - Admission Admission Date: January 16, 2018 15:11 - Admission Diagnosis (1) Unspecified psychosis Code(s): F29 - Unspecified psychosis not due to a substance or known physiological condition (2) Polysubstance abuse Code(s): F19.10 - Other psychoactive substance abuse, uncomplicated Brief History: Ms. Cunningham is a 47-year-old female who presented initially to the ED by [facility] for possible overdose. She was apparently somewhat altered at the time and received Narcan in the field. She may have written a suicide note. It is unclear what substances she took, although her urine toxicology was positive for benzodiazepines, cocaine and cannabinoids in her alcohol level was 249 on presentation here. Patient was medically admitted and seen in psychiatric consultation by Dr. Campos. Although she was apparently fairly uncooperative , it does appear that she was more lucid in her interaction with him then on presentation today. Reviewing the electronic medical record, I note the patient was seen in psychiatric consultation by Dr. Soto in 2011 with diagnoses of alcohol use disorder and anxiety at that time. Patient seen and examined with counselor and nurse. Chart reviewed. Case discussed with nursing staff. I find the patient in the hallway of the high acuity unit. She is quite confused. She is pushing at invisible buttons on the doors of other patients' rooms and flipping on and off the light switches. She seems to believe that she is in her own house and calls out repeatedly and loudly for someone named "Sherin." She is able to calm somewhat and participate in a brief interview. She does confirm that she believes that she is in her own house. Her affect is quite silly at times and inappropriate to the circumstance. She denies SI/HI and denies AVH although she appears frankly internally stimulated. Mood is "frustrated." Registration is 3 out of 3 and recall is 0 out of 3 at 5 minutes. She believes she is in her house and that the year is 2003. She is able to name 2 items but unable to repeat a phrase. When asked the current president she says "Osama." Psychiatric interview is limited because of patient's degree of psychiatric symptomatology. No acute physical complaints. Following our interview, the patient becomes quite agitated and banging on the kee, trying to get out. I have ordered her medicated with Haldol, Ativan and Benadryl IM stat ETO. Patient remains agitated even after receiving ETO and begins wandering into other patient's rooms. I am concerned for risk of harm to others as the patient is growing increasingly restive. I have ordered her placed in locked seclusion and was present on the unit at initiation of seclusion. Past psychiatric history: Patient is likely an unreliable historian. When I ask if she has a history of psychiatric diagnosis she says "no, I just was not good in history." She is not presently under the care of a psychiatrist. Unclear whether or when she has had previous psychiatric admissions. She denies a history of suicide attempts. Family history: The patient denies a family history of mental illness. Chemical dependency history: The patient says that she has been using alcohol and cannabis "lately" and using cocaine only "very recently." Documentation in the electronic medical record indicates that patient's alcohol use may be quite a bit more than she indicates. Social history: Patient is only able to say that she lives with Sherin and then repeatedly calls for Sherin. Given patient's degree of psychiatric impairment, I did reach out to patient's mother at the number listed in the electronic medical record for collateral information. She is willing to act as patient's healthcare surrogate. She notes that the patient has no real history of previous psychiatric illness other than substance use issues. She has certainly not had a confusional episode as she apparently is experiencing now. I discussed the treatment plan with patient's mother in her role as healthcare surrogate. Tobacco Use In Past 30 Days: Yes How Often Do You Have a Drink Containing Alcohol: 4 or more times a week Hospital Course: Patient was admitted to a locked, inpatient psychiatric unit. A general medical consultation was obtained. Appropriate precautions were in place throughout patient's hospital stay. Patient was seen and examined on the unit by psychiatry and also visited by counselor. Psychotropic medications were adjusted. Patient experienced rapid improvement in presenting psychotic symptoms with initiation of benzodiazepine for probable withdrawal delirium. Patient's behavior improved with the benefit of psychopharmacologic treatment. There was no evidence of any suicidality or homicidality on the unit. Patient' s self-care improved with improvement in mental status. Collateral information was obtained from the patient's mother. On the day of discharge: Patient seen and examined with nurse. Chart reviewed. Case discussed with staff. No reported behavioral issues overnight. Case discussed in treatment team. Counselor relates that patient's mother is comfortable receiving the patient home today. On my examination today, the patient feels ready for discharge from the inpatient psychiatric unit. She denies any suicidal or homicidal ideation, intent or plan. I can elicit no depressive or hypomanic/manic symptoms. She reports that she slept well overnight. She denies any audiovisual hallucinations. I can elicit no delusional material. There is no evidence of ongoing delirium. She denies side effects from medications. Extensive discussion with patient regarding side effects and management of the Zyprexa. No physical complaints. Suicide and violence risk assessment on day of discharge both suggest lower imminent risk from mental illness and the patient's level of function is adequate for outpatient care. Patient has maximized benefit from this inpatient psychiatric hospital stay. She will be discharged home today with psychiatric follow-up as arranged by counselor. Patient is also to follow up with primary care. I have counseled the patient to abstain from substances of abuse and in particular cautioned her against combining substances with her medications or taking medications not prescribed to her. I have counseled the patient regarding warning signs for need to return to the psychiatric emergency room as part of a general safety plan. - Discharge Discharge Date: 01/22/18 - Discharge Diagnosis (1) Unspecified psychosis Diagnosis: Principal (resolved) Code(s): F29 - Unspecified psychosis not due to a substance or known physiological condition Status: Resolved (2) Polysubstance abuse Diagnosis: Secondary (counseled to quit) Code(s): F19.10 - Other psychoactive substance abuse, uncomplicated Status: Acute Discharge Disposition: Home - Discharge Instructions Discharge Diet: Regular Diet Activities You Can Perform: Weight Bearing As Tolerat - Discharge Time <= 30 minutes Mental Status Examination Appearance: Appropriate Consciousness: Alert Orientation: x4 Motor Activity: Normal gait, Other (No motoric abnormalities noted. No signs of withdrawal noted.) Speech: Unremarkable Language: Adequate Fund of Knowledge: Adequate Attention and Concentration: Adequate Memory: Unremarkable Mood: Appropriate Affect: Appropriate, Euthymic Thought Process & Associations: Intact, Logical, Goal directed, Linear Thought Content: Appropriate Hallucination Type: None Delusion Type: None Suicidal Ideation: No Suicidal Plan: No Suicidal Intention: No Homicidal Ideation: No Homicidal Plan: No Homicidal Intention: No Insight: Adequate Judgment: Adequate Discharge/Advance Care Plan - Results Vital Signs: Last Vital Signs Temp 98 F 01/22/18 05:44 Pulse 70 01/22/18 05:44 Resp 17 01/22/18 05:44 BP 105/63 01/22/18 05:44 Pulse Ox 97 01/22/18 05:44 Lab Results: Abnormal Lab Results 01/17/18 14:56 Thiamine 155 RBC Folate 719 Laboratory Results Hemoglobin A1c 5.1 % (4.3-6.0) 01/17/18 09:09 Triglycerides 153 mg/dL (42-150) H 01/17/18 09:09 Cholesterol 246 mg/dL (120-200) H 01/17/18 09:09 LDL Cholesterol, Calc 149 mg/dL (0-99) H 01/17/18 09:09 HDL Cholesterol 66.0 mg/dL (40.0-60.0) H 01/17/18 09:09 TSH 6.430 uIU/mL (0.358-3.740) H 01/17/18 14:56 Free T4 1.06 ng/dL (0.76-1.46) 01/17/18 17:00 Summary of Procedures: None done. Pending Results: None - Medications Number of antipsychotic medications at discharge: 1 - Discharge Care Plan Goals to Promote Your Health: * To prevent worsening of your condition and complications * To maintain your health at the optimal level Directions to Meet Your Goals: Take your medications as prescribed Follow your dietary instruction Follow activity as directed Keep your appointments as scheduled Take your immunizations and boosters as scheduled If your symptoms worsen call your PCP, if no PCP go to Urgent Care Center or Emergency Room For / questions related to your inpatient stay or results of tests pending at discharge, please contact Dr. Leonel Silva MD at Smoking is Dangerous to Your Health. Avoid second hand smoking
== END 2018-01-22 18:47 | disposition home or self-care (01) ==
LOC: H270 15:11 → H4EA 01-17 18:50 → HCPC 01-18 03:07 → H4EA 01-18 03:08 → H260 01-20 18:14
PROVIDERS: ADMIT Psychiatry & Neurology Psychiatry; ATTEND Psychiatry & Neurology Psychiatry